=== PATIENT | female | born 1970 | race Caucasian/White ===

== ENCOUNTER 2020-08-07 00:29 | Outpatient (CLI) | payer OTHER, SELFPAY ==
[2020-08-07 19:00] LABS: SARS-CoV-2 RNA PCR Negative
== END 2020-08-07 00:30 | disposition home or self-care (01) ==
LOC: ANHCOVIDDT 00:29
PROVIDERS: PCP Physician Assistant; Visit Provider Internal Medicine Gastroenterology
DX: Z01.812 Encounter for preprocedural laboratory examination (principal); Z20.828 Contact with and (suspected) exposure to other viral communicable diseases
CPT/HCPCS: 87635; C9803; U0003

== ENCOUNTER 2020-08-09 00:07 | Day surgery (SDC) | payer OTHER, SELFPAY ==
[2020-08-02 10:53] VITALS: BMI 30.9
[2020-08-09 08:28] VITALS: BP 116/90; PULSE 96; RESP 18; TEMP 35.5; O2SAT 96; BMI 31.2
--- NOTE | 2020-08-09 08:30 | P.HP_ITS ---
History of Present Illness History of Present Illness Consent: Risks, benefits, and alternatives have been discussed and questions answered. Patient agrees to proceed with procedure. Chief complaint: Neoplasm Screening Narrative: Sissy Arteaga is a 49 year old W female referred for her 1st screening colonoscopy. Patient is asymptomatic and there is no known family history of colon polyps or colon cancer. [facility] Surgical History Surgical History (Updated 08/09/20 @ 08:31 by Modesto Pruitt MD) Status post Social History Social History Smoking status: Never smoker Alcohol intake: current Drinks per week: 0 Substance use: never Substance use type: does not use Living arrangements: with family Spiritual care concerns: No Meds Home Medications and Allergies Home Medications Medication Instructions Recorded Confirmed Type No Home Medications 08/02/20 08/02/20 History Allergies Allergy/AdvReac Type Severity Reaction Status Date / Time Iodinated Contrast Media Allergy Severe Swelling Verified 08/09/20 08:27 of Lip/Tongue/Throat metronidazole Allergy Severe HIVES Verified 08/09/20 08:27 oxycodone AdvReac Mild SERVERE N/V Verified 08/09/20 08:27 Contrast Media Allergy Severe THROAT Uncoded 08/09/20 08:27 SWELLING/ DIFFICULTY BREATHING Exam Const: Orientation/consciousness: patient oriented x3 Resp: Auscultation: clear to auscultation bilaterally Cardio: Rate: regular rate Rhythm: regular rhythm Heart sounds: no murmurs GI: GI Palp: Yes Soft to palpation, No Tenderness to palpation present (GI), Y es No hepatosplenomegaly present and No Palpable mass present Auscultation: normal bowel sounds Neuro: General: patient oriented x3 and no focal motor deficits Extrem: General: no pedal edema Assessment and Plan Additional Plan screening colonoscopy in average risk patient
[2020-08-09] MEDS: LACTATED RINGERS 1,000 ML 150 ML IV CONT (08:39)
--- NOTE | 2020-08-09 08:45 | WPDANESEPPF ---
Anes - Initial Pre Proc Eval Procedure: Operation Date: 08/09/20 09:00 Proposed Procedures p Screening Colonoscopy - Modesto Pruitt MD Date/Time: 08/09/20 08:45 Surgeon: Modesto Pruitt MD Pre Op Diagnosis: Neoplasm Screening Patient Data Age: 49 Gender: F Height: 5 ft 6 in Weight: 87.8 kg Last Vital Signs Temp 35.5 C L 08/09/20 08:28 Pulse 96 08/09/20 08:28 Resp 18 08/09/20 08:28 BP 116/90 08/09/20 08:28 Pulse Ox 96 08/09/20 08:28 Allergies Allergy/AdvReac Type Severity Reaction Status Date / Time Iodinated Contrast Media Allergy Severe Swelling Verified 08/09/20 08:27 of Lip/Tongue/Throat metronidazole Allergy Severe HIVES Verified 08/09/20 08:27 oxycodone AdvReac Mild SERVERE N/V Verified 08/09/20 08:27 Contrast Media Allergy Severe THROAT Uncoded 08/09/20 08:27 SWELLING/ DIFFICULTY BREATHING Home Medications Medication Instructions Recorded Confirmed Type No Home Medications 08/02/20 08/02/20 History Patient hx anesthesia problems: none Family hx anesthesia problems: none [facility] Past Medical History Medical History (Updated 08/09/20 @ 08:45 by Antony Cohen MD) Obesity Surgical History Surgical History (Updated 08/09/20 @ 08:45 by Antony Cohen MD) H/O abdominoplasty Status post Social History Social History Smoking status: Never smoker Alcohol intake: current Drinks per week: 0 Substance use: never Substance use type: does not use Living arrangements: with family Spiritual care concerns: No Anes - Eval Final PreProcedure Day of Procedure 08/09/20 08:45 Patient weight: obese Heart: regular rate and rhythm Lungs: clear to auscultation Airway: Mallampati scale class II Neurological: alert and oriented Last oral intake: 2 hours (12 oz water at 730) ASA classification: II Emergent: no Anesthetic plan: delay (until 930 ) Anesthesia type and monitoring: general GIVS and standard monitoring Informed Consent: The patient's anesthetic plan and its attendant risks and benefits were discussed with the patient/family/POA. Questions were solicited and answers provided to the satisfaction of the patient/family/POA.
[2020-08-09] MEDS: SIMETHICONE ORAL SUSPENSION 20 MG/0.3 ML 30 ML BOTTLE 0.6 ML IRRIGATION (10:41)
[2020-08-09 10:47] VITALS: BP 120/81; PULSE 81; RESP 20; O2SAT 97
[2020-08-09 10:57] VITALS: BP 120/81; PULSE 81; RESP 20; O2SAT 97
[2020-08-09 11:07] VITALS: BP 128/88; PULSE 73; RESP 15; O2SAT 100
== END 2020-08-09 11:17 | disposition home or self-care (01) ==
PROVIDERS: PCP Physician Assistant; Visit Provider Internal Medicine Gastroenterology
PROC: 0DJD8ZZ Inspection of Lower Intestinal Tract, Via Natural or Artificial Opening Endoscopic (ICD-10-PCS; CPT 45378; principal; 2020-08-09 09:00)
DX: Z12.11 Encounter for screening for malignant neoplasm of colon (principal); K64.4 Residual hemorrhoidal skin tags; E66.9 Obesity, unspecified; Z68.31 Body mass index [BMI] 31.0-31.9, adult
CPT/HCPCS: 45378; J2704; J7120

== ENCOUNTER 2020-08-24 12:53 | Emergency (ER) | payer OTHER, SELFPAY ==
--- NOTE | ~2020-08-24 | XR_ITS ---
EXAMINATION: XR finger 4th LT min 2V DATE: 08/24/2020 13:29 INDICATION: Smashing injury to the fourth digit with laceration at the proximal interphalangeal joint . TECHNIQUE: Dorsal palmar, lateral and 2 oblique views of the left fourth digit were obtained COMPARISON: None FINDINGS: There is a metal ring which was unable to be removed which obscures the central portion of the diaphy sis of the fourth proximal phalanx. Bone alignment is normal. No fracture. Mild polyarticular osteoar thritis at the interphalangeal joints. Diffuse osteopenia. Soft tissue swelling dorsal to the fourth proximal interphalangeal joint. No radiopaque foreign bodies. IMPRESSION: 1. No acute osseous abnormality. Of note a portion of the central diaphysis of the fourth proximal ph alanx is obscured on all images due to the presence of a ring which was unable to be removed. Reviewed, dictated and finalized at location B. IMPRESSION: 1. No acute osseous abnormality. Of note a portion of the central diaphysis of the fourth proximal phalanx is obscured on all images due to the presence of a ring which was unable to be removed.
[2020-08-24 13:09] VITALS: BP 150/86; PULSE 73; RESP 18; TEMP 36.9; O2SAT 99
--- NOTE | 2020-08-24 13:19 | ED.UPPEXIN ---
HPI - Extremity Injury (Upper) General Chief Complaint: Extremity Injury, Upper Stated Complaint: injury left 4th finger Time Seen by Provider: 08/24/20 13:19 Source: patient Mode of arrival: ambulatory Limitations: no limitations History of Present Illness HPI narrative: Sissy Arteaga is a 49 yo female with no PMH who comes with laceration of left ring finger at proximal joint on a laundry basket 1 hour ago, mild swelling, no bleeding, complaining of pain Related Data Home Medications Medication Instructions Recorded Confirmed No Home Medications 08/02/20 08/02/20 Allergies Allergy/AdvReac Type Severity Reaction Status Date / Time Iodinated Contrast Media Allergy Severe Swelling Verified 08/24/20 13:15 of Lip/Tongue/Throat metronidazole Allergy Severe HIVES Verified 08/09/20 08:27 oxycodone AdvReac Mild SERVERE N/V Verified 08/09/20 08:27 Contrast Media Allergy Severe THROAT Uncoded 08/09/20 08:27 SWELLING/ DIFFICULTY BREATHING Review of Systems Review of Systems: Narrative: CONSTITUTIONAL: Denies fever, chills, sweats. EYES: Denies visual changes, redness, discharge. ENT: Denies rhinorrhea, congestion, sore throat, otalgia. CARDIOVASCULAR: Denies chest pain, palpitations, edema. RESPIRATORY: Denies dyspnea, wheezing, cough GASTROINTESTINAL: Denies abdominal pain, nausea, vomiting, diarrhea. GENITOURINARY: Denies dysuria, hematuria, abnormal discharge SKIN: Denies rash or itching. Small 1 cm laceration of the third ring finger on left NEUROLOGIC: Denies numbness, or focal weakness. PSYCHIATRIC: Denies anxiety or depression. [facility] Past Medical History Medical History Obesity Surgical History Surgical History H/O abdominoplasty Status post Family History Family History Other Diabetes mellitus Heart disease Hypertension Social History Social History Smoking status: Never smoker Alcohol intake: current Drinks per week: 0 Substance use: never Substance use type: does not use Gender identity (if verbalized by the patient): Female Spiritual care concerns: No Comments At time of signature, I agree with nursing past medical, surgical, social and family history. There is no relevant family history pertinent to the presenting complaint. Exam Narrative: Exam Narrative: GENERAL: This is a well-nourished, well-developed patient, in mild distress. HEAD: normocephalic, atraumatic. EYES: PERRL. Sclera clear/white. Vision is grossly intact. EARS: External ears normal, auditory canals clear and without drainage, TMs normal without perforation. Hearing grossly intact. NOSE: External nose normal without nasal discharge, nares without redness, no rhinorrhea. THROAT: Mucous membranes moist, posterior pharynx NECK: Neck supple, non-tender CARDIOVASCULAR: Regular rate and rhythm without murmurs, gallops, or rubs. RESPIRATORY: Clear to auscultation. Breath sounds equal bilaterally. No wheezes, rales, or rhonchi. GASTROINTESTINAL: Abdomen soft, non-tender, SKIN: warm, intact with no suspicious lesions or rash, good texture and turgor. 1 cm laceration with mild swelling to L ring finger with controlled bleeding. Wedding ring i slarge and thick and in way of repair NEURO: awake, alert, and oriented to person, place and time. There were no obvious focal neurologic abnormalities. Steady gait EXTREMITIES: Normal range of motion. BACK: Nontender without deformity Course Course Emergency Course: Scented to express care with small lack to left ring finger proximal joint Ring removed using dental floss method and hand cleaned and used Dermabond and Steri-Strips- placed on splint Directions given for care Vital Signs Vital signs: Vital Signs Tempera
[2020-08-24] MEDS: TETANUS,DIPHTHERIA,AC PERTUSSIS ADULT (0.5 ML) BOOSTRIX IM (13:59)
== END 2020-08-24 14:20 | disposition home or self-care (01) ==
PROVIDERS: Emergency Provider Nurse Practitioner; PCP Physician Assistant
DX: S61.215A Laceration without foreign body of left ring finger without damage to nail, initial encounter (principal); X58.XXXA Exposure to other specified factors, initial encounter; Z23 Encounter for immunization
CPT/HCPCS: 12001; 73140; 90471; 90715; 99213; G0463

== ENCOUNTER → 2021-09-10 13:14 | Outpatient (CLI) | payer OTHER, SELFPAY ==
--- NOTE | ~2021-09-10 | MM_ITS ---
EXAMINATION: MM screening [facility] BI w madie HISTORY: Screening mammogram TECHNIQUE: Craniocaudal and mediolateral oblique 3-D tomosynthesis images were obtained and synthetic 2-D images were generated. CAD analysis was submitted and interpreted. COMPARISON: 04/07/2019, 09/17/2016 BREAST PARENCHYMAL COMPOSITION: There are scattered areas of fibroglandular density. FINDINGS: There is no evidence of suspicious mass, calcification, or architectural distortion to sugg est malignancy in either breast. There has been no suspicious interval change. IMPRESSION: 1. No mammographic evidence of malignancy. 2. Recommend routine screening mammography in one year. BI-RADS Category 1: Negative Reviewed, dictated and finalized at location A. L BILLER
== END ==
PROVIDERS: PCP Physician Assistant; Visit Provider Obstetrics & Gynecology
DX: Z12.31 Encounter for screening mammogram for malignant neoplasm of breast (principal)
CPT/HCPCS: 77063; 77067

== ENCOUNTER 2022-01-30 10:57 | Emergency (ER) | payer OTHER, SELFPAY ==
--- NOTE | ~2022-01-30 | CT_ITS ---
EXAMINATION: CT abdomen pelvis wo con EXAM DATE: 01/30/2022 11:17 INDICATION: RLQ pain, contrast allergy . TECHNIQUE: Spiral CT of the abdomen and pelvis was performed without contrast. Axial, coronal and s agittal images of the abdomen and pelvis were reviewed. The dose-length product (DLP) for this exami nation was 683.80 mGy-cm. The exposure was tailored according to patient size (auto mA exposure cont rol), and iterative reconstruction (ASIR) was used as additional dose reduction technique. Comparison is made to prior examination from 06/11/2017. FINDINGS: There is hepatic steatosis without suspicious focal lesion identified. Spleen, adrenal glan ds, pancreas are unremarkable. Gallbladder is unremarkable. No biliary obstruction. There is no ne phrolithiasis or hydronephrosis. The uterus is not identified and has likely been surgically resect ed. The bladder is collapsed at time of imaging limiting evaluation. There is no retroperitoneal or pelvic lymphadenopathy. The appendix is normal. The stomach and small bowel are unremarkable. There is expected amount of c olonic stool. No free intraperitoneal gas. The heart is normal in size. There are no pericardial or pleural effusions. The lung bases are unremarkable. The bones are unremarkable. IMPRESSION: 1. No acute intra-abdominal findings. Normal appendix. 2. Hepatic steatosis. Reviewed, dictated and finalized at location A.
--- NOTE | 2022-01-30 11:06 | ED.ABDPAIN ---
HPI - Abdominal Pain General Chief Complaint: Abdominal Pain Stated Complaint: abd pain Time Seen by Provider: 01/30/22 11:00 Source: patient History of Present Illness HPI narrative: Patient presents with right lower quadrant abdominal pain. Reports symptoms started last night and were intermittent today they are more consistent with intermittent spikes. Since the pain was increasing she came to the ER for further evaluation. Her pain is achy, constant, no clear aggravating or relieving factors, does not radiate. She denies any nausea or vomiting she denies any diarrhea she denies any vaginal bleeding or urinary symptoms. Reports a history of total hysterectomy but denies any prior abdominal surgeries. She denies any fevers or sick contacts Related Data Home Medications Medication Instructions Recorded Confirmed No Home Medications 08/02/20 08/02/20 Allergies Allergy/AdvReac Type Severity Reaction Status Date / Time Iodinated Contrast Media Allergy Severe Swelling Verified 01/30/22 11:06 of Lip/Tongue/Throat metronidazole Allergy Severe HIVES Verified 01/30/22 11:06 oxycodone AdvReac Mild SERVERE N/V Verified 01/30/22 11:06 Contrast Media Allergy Severe THROAT Uncoded 08/09/20 08:27 SWELLING/ DIFFICULTY BREATHING Review of Systems Review of Systems: CONSTITUTIONAL: Denies fever, chills, or sweats. EYES: Denies visual changes, redness, or discharge. ENT: Denies rhinorrhea, congestion, sore throat, or otalgia. CARDIOVASCULAR: Denies chest pain, palpitations, or edema. RESPIRATORY: Denies cough or dyspnea. GASTROINTESTINAL: Denies nausea, vomiting, or diarrhea. GENITOURINARY: Denies dysuria or hematuria. SKIN: Denies rash or itching. MUSCULOSKELETAL: Denies back pain, joint pain, or myalgia. NEUROLOGIC: Denies headache, numbness, dizziness, or weakness. PSYCHIATRIC: Denies anxiety or depression. All systems reviewed & are unremarkable except as noted in HPI and below PMFSH Past Medical History Medical History Obesity Surgical History Surgical History H/O abdominoplasty Status post Family History Family History Other Diabetes mellitus Heart disease Hypertension Social History Social History Smoking status: Never smoker Alcohol intake: current Drinks per week: 0 Substance use: never Substance use type: does not use Gender identity (if verbalized by the patient): Female Spiritual care concerns: No Exam Narrative: GENERAL: Well-appearing, well-nourished, and in no acute distress. HEAD: Normocephalic, atraumatic. EYES: PERRLA and EOMI. ENT: Nares clear, no rhinorrhea or epistaxis. Mucous membranes moist. NECK: Supple. No masses. No JVD ABDOMEN: Moderate right lower quadrant pain with rebound and guarding soft, nondistended. EXTREMITIES: Normal range of motion. No edema. SKIN: Warm, dry, no rash. NEURO: No focal deficits. Alert and oriented x3. PSYCH: Normal mood and affect. Course Reevaluation(s) Reevaluation #1: Patient notes significant changes in her symptoms she did decline pain medication while in the ER. Labs and imaging returned UA with hematuria of unclear etiology remainder work-up was clinically unremarkable. Discussed inpatient versus outpatient monitoring. Patient defers outpatient monitoring of her symptoms given her reassuring work-up this is a safe plan. Patient encouraged to follow-up with her primary care provider. Date: 01/30/22 Time: 12:13 Vital Signs Vital signs: Vital Signs Temperature 36.4 C 01/30/22 11:12 Pulse Rate 92 01/30/22 11:12 Respiratory Rate 16 01/30/22 11:12 Blood Pressure 138/96 H 01/30/22 11:12 Pulse Oximetry 99 01/30/22 11:12 Temperature 36.4 C 01/30/22 11:12 Pul
[2022-01-30 11:12] VITALS: BP 138/96; PULSE 92; RESP 16; TEMP 36.4; O2SAT 99
[2022-01-30] MEDS: SODIUM CHLORIDE 0.9% IV 1,000 ML 999 ML IV CONT (11:27)
[2022-01-30 11:40] LABS: Basophils Absolute Auto 0.1 K/mm3 (0.0-0.1); Basophils Percent Auto 0.8 % (0.2-1.2); Eosinophils Percent Auto 0.3 % (0-4.4); Hematocrit 42.7 % (37.0-47.0); Hemoglobin 13.8 g/dL (12.0-15.0); Immature Granulocyte Absolute 0.03 K/mm3 (0.00-0.031); Immature Granulocyte Percent A 0.4 % (0-0.5); Lymphocytes Absolute Auto 2.85 K/mm3 (0.9-3.2); Lymphocytes Percent Auto 35.9 % (18.3-44.2); Mean Corpuscular HGB Conc 32.3 g/dl (32-36); Mean Corpuscular Hemoglobin 28.2 pg (26-34); Mean Corpuscular Volume 87.1 fl (80-100); Monocytes Absolute Auto 0.6 K/mm3 (0.1-0.6); Monocytes Percent Auto 7.8 % (2.6-8.5); Neutrophils Absolute Auto 4.4 K/mm3 (1.3-6.7); Neutrophils Percent Auto 54.8 % (45.5-73.1); Platelet Count Result 257 k/mm3 (150-375); Red Cell Distribution Width 14.6 % (11.5-14.5); White Blood Count 7.9 K/mm3 (4.5-10.0)
[2022-01-30 11:44] LABS: Add Urine Microscopic? YES; Appearance Urine Cloudy (Clear); Bacteria Urine Trace /hpf; Bilirubin Urine Negative (Negative); Blood Urine Negative (Negative); Color Urine Yellow (Yellow); Glucose Urine UA Negative (Negative); Ketones Urine Negative (Negative); Leukocyte Esterase Ur Trace LEU/UL (Negative); Mucus Urine Rare /lpf; Nitrate Urine Negative (Negative); Protein Urine Negative (Negative); RBC Urine 21-50 /hpf (0-2); Specific Grav Ur 1.024 (1.001-1.035); Squamous Epithelial Cell Urine Few /hpf (Few); Urobilinogen Urine Negative mg/dL (<2.0); WBC Urine 0-3 /hpf
[2022-01-30 11:46] LABS: Alanine Aminotransferase 32 U/L (4-35); Albumin Level 4.7 g/dL (3.5-5.1); Alkaline Phosphatase 105 U/L (38-126); Anion Gap 7 mmol/L (8-16); Aspartate Amino Transferase 35 U/L (14-36); Bilirubin,Total 0.6 mg/dL (0.2-1.3); Blood Urea Nitrogen 19 mg/dL (7-17); Calcium 9.1 mg/dL (8.4-10.2); Carbon Dioxide 23 mmol/L (22-30); Chloride 106 mmol/L (98-107); Estimated CRCL calculation 78 ml/min; Estimated Glomerular Filt Rate > 60; Glucose 115 mg/dL (65-110); Lipase 99 U/L (23-300); Potassium 4.1 mmol/L (3.4-5.0); Sodium 136 mmol/L (137-145)
[2022-01-30 12:40] VITALS: BP 139/86; PULSE 80; RESP 17; O2SAT 99
--- NOTE | 2022-02-06 07:41 | PC.NURSE ---
LATE ENTRY This note is being entered to document information to the patient's record. The following information was omitted on [], by [alex cabral]. ns start 12:28 end 1333
== END 2022-01-30 12:41 | disposition home or self-care (01) ==
PROVIDERS: Emergency Provider Emergency Medicine; PCP Physician Assistant
DX: K76.0 Fatty (change of) liver, not elsewhere classified (principal); R31.9 Hematuria, unspecified; E66.9 Obesity, unspecified; Z68.29 Body mass index [BMI] 29.0-29.9, adult; R10.31 Right lower quadrant pain
CPT/HCPCS: 36415; 74176; 80053; 81001; 83690; 85025; 96360; 99284; J7030

== ENCOUNTER 2022-10-13 05:59 | Day surgery (SDC) | payer OTHER, SELFPAY ==
[2022-10-03 11:13] VITALS: BMI 31.3
[2022-10-13 06:15] VITALS: BP 151/102; PULSE 80; RESP 20; TEMP 37.1; O2SAT 97
[2022-10-13 06:53] VITALS: BMI 32.9
[2022-10-13] MEDS: LACTATED RINGERS 1,000 ML 150 ML IV CONT (06:56)
--- NOTE | 2022-10-13 06:57 | P.PNAN_ITS ---
Anes - Initial Pre Proc Eval Procedure: Operation Date: 10/13/22 07:30 Proposed Procedures p Esophagogastroduodenoscopy - Tone Berrios MD Date/Time: 10/13/22 06:57 Surgeon: Tone Berrios MD Pre Op Diagnosis: Gerd Patient Data Age: 51 Gender: F Height: 1.68 m Weight: 92.5 kg Last Vital Signs Temp 37.1 C 10/13/22 06:15 Pulse 80 10/13/22 06:15 Resp 20 10/13/22 06:15 BP 151/102 H 10/13/22 06:15 Pulse Ox 97 10/13/22 06:15 O2 Del Method Room Air 10/13/22 06:15 Allergies Allergy/AdvReac Type Severity Reaction Status Date / Time Iodinated Contrast Media Allergy Severe Swelling Verified 10/13/22 06:51 of Lip/Tongue/Throat metronidazole Allergy Severe HIVES Verified 10/13/22 06:51 oxycodone AdvReac Mild SERVERE N/V Verified 10/13/22 06:51 Contrast Media Allergy Severe THROAT Uncoded 10/13/22 06:51 SWELLING/ DIFFICULTY BREATHING Home Medications Medication Instructions Recorded Confirmed Type alprazolam 0.25 mg tablet 0.25 mg PO PRN PRN Anxiety 10/03/22 10/13/22 History pantoprazole 40 mg tablet,delayed 40 mg PO DAILY 10/03/22 10/13/22 History release (Protonix) Patient hx anesthesia problems: none Family hx anesthesia problems: none Results Review: All pre-operative results and documents have been reviewed as part of the pre- operative evaluation. [facility] Past Medical History Medical History (Updated 10/13/22 @ 06:57 by Antony Cohen MD) GERD (gastroesophageal reflux disease) Obesity Surgical History Surgical History H/O abdominoplasty Status post Family History Family History Other Diabetes mellitus Heart disease Hypertension Social History Social History Smoking status: Never smoker Alcohol intake: current Drinks per week: 0 Substance use: never Substance use type: does not use Living arrangements: with family Gender identity (if verbalized by the patient): Female Spiritual care concerns: No Anes - Eval Final PreProcedure Day of Procedure 10/13/22 06:57 Patient weight: obese Heart: regular rate and rhythm Lungs: clear to auscultation Airway: Mallampati scale class II Neurological: alert and oriented Last oral intake: >/= 8 hours ASA classification: II Emergent: no Anesthetic plan: proceed Anesthesia type and monitoring: general GIVS and standard monitoring Results Review: All pre-operative results and documents have been reviewed as part of the pre- operative evaluation. Informed Consent: The patient's anesthetic plan and its attendant risks and benefits were discussed with the patient/family/POA. Questions were solicited and answers provided to the satisfaction of the patient/family/POA.
--- NOTE | 2022-10-13 07:28 | PM.HPGS ---
History of Present Illness History of Present Illness Consent: Risks, benefits, and alternatives have been discussed and questions answered. Patient agrees to proceed with procedure. Chief complaint: Gerd Narrative: Sissy Arteaga is a 51 year old female Presents for EGD. Patient has had a history of acid regurgitation with a bitter taste in her throat. She also has had substernal chest pain. Over the last 2 months she has been treated with pantoprazole 40mg p.o. daily with a good response to therapy. Patient denies any dysphagia. She has had no weight loss. Most symptoms have improved with this medication. Patient has had similar symptoms in the past that improved with Zantac however ultimately she discontinue this medication. Review of Systems Review of Systems: Review of systems noncontributory. [facility] Past Medical History Medical History (Updated 10/13/22 @ 07:29 by Tone Berrios MD) GERD (gastroesophageal reflux disease) Obesity Surgical History Surgical History H/O abdominoplasty Status post Family History Family History Other Diabetes mellitus Heart disease Hypertension Social History Social History Smoking status: Never smoker Alcohol intake: current Drinks per week: 0 Substance use: never Substance use type: does not use Living arrangements: with family Gender identity (if verbalized by the patient): Female Spiritual care concerns: No Meds Home Medications and Allergies Home Medications Medication Instructions Recorded Confirmed Type alprazolam 0.25 mg tablet 0.25 mg PO PRN PRN Anxiety 10/03/22 10/13/22 History pantoprazole 40 mg tablet,delayed 40 mg PO DAILY 10/03/22 10/13/22 History release (Protonix) Allergies Allergy/AdvReac Type Severity Reaction Status Date / Time Iodinated Contrast Media Allergy Severe Swelling Verified 10/13/22 06:51 of Lip/Tongue/Throat metronidazole Allergy Severe HIVES Verified 10/13/22 06:51 oxycodone AdvReac Mild SERVERE N/V Verified 10/13/22 06:51 Contrast Media Allergy Severe THROAT Uncoded 10/13/22 06:51 SWELLING/ DIFFICULTY BREATHING Vital Signs Vital Signs - 24 hr 10/13/22 06:15 Temperature 98.8 F Pulse Rate 80 Respiratory Rate 20 Blood Pressure 151/102 H Pulse Oximetry 97 Oxygen Delivery Room Air Exam Narrative: Physical exam reveals patient to be alert. Vital signs stable. HEENT exam is unremarkable. Patient is anicteric. Lungs are clear to auscultation and percussion. Heart is without murmur or extra sounds. Abdomen bowel sounds are present soft nontender with no organomegaly. Digital external rectal exam is normal. Assessment and Plan Assessment and plan (1) GERD (gastroesophageal reflux disease): Code(s): K21.9 - Gastro-esophageal reflux disease without esophagitis Status: Acute Assessment and Plan: Patient presents for EGD. She has a history of recurrent acid reflux disease. Currently improved on pantoprazole 40mg p.o. daily. EGD will be performed. Anticipate long-term therapy. She may BD able to try an H2 hector as an alternative pending on results of EGD. Elevating head of bed at night. No late snacks are all important.
[2022-10-13 07:46] VITALS: BP 131/82; PULSE 70; RESP 16; O2SAT 99
--- NOTE | 2022-10-13 07:52 | WPDANESPN ---
Anes - Prog Note Post-Op Date/Time: 10/13/22 07:52 Cardiovascular status: normal Respiratory status: normal Airway patency: baseline Mental status: baseline Post-Op hydration status: normal Vital Signs: Last Vital Signs Temp 37.1 C 10/13/22 06:15 Pulse 80 10/13/22 06:15 Resp 20 10/13/22 06:15 BP 151/102 H 10/13/22 06:15 Pulse Ox 97 10/13/22 06:15 O2 Del Method Room Air 10/13/22 06:15 Pain Score (VAS): 0/10 I/O: Intake & Output 10/12/22 10/12/22 10/13/22 15:59 23:59 07:59 Intake Total 200 Balance 200 Patient Feedback: Patient satisfied with anesthetic care.
[2022-10-13 07:56] VITALS: BP 113/81; PULSE 66; RESP 20; O2SAT 98
[2022-10-13 08:06] VITALS: BP 125/83; PULSE 61; RESP 20; O2SAT 97
== END 2022-10-13 08:23 | disposition home or self-care (01) ==
PROVIDERS: PCP Physician Assistant; Visit Provider Internal Medicine Gastroenterology
PROC: 0DJ08ZZ Inspection of Upper Intestinal Tract, Via Natural or Artificial Opening Endoscopic (ICD-10-PCS; CPT 43235; principal; 2022-10-13 07:30)
DX: K21.9 Gastro-esophageal reflux disease without esophagitis (principal)
CPT/HCPCS: 43235

== ENCOUNTER 2022-10-26 21:08 | Emergency (ER) | payer OTHER, SELFPAY ==
[2022-10-26 21:24] VITALS: BP 170/100; PULSE 91; RESP 16; TEMP 36.9; O2SAT 99
--- NOTE | 2022-10-27 02:00 | PC.NURSE ---
patient called to room with no answer
== END 2022-10-27 02:00 | disposition left against medical advice (07) ==
PROVIDERS: PCP Physician Assistant
DX: R10.9 Unspecified abdominal pain (principal)
CPT/HCPCS: 99199

== ENCOUNTER → 2022-11-21 15:29 | Outpatient (CLI) | payer OTHER, SELFPAY ==
--- NOTE | ~2022-11-21 | MM_ITS ---
EXAMINATION: MM screening [facility] BI w madie HISTORY: Screening TECHNIQUE: Craniocaudal and mediolateral oblique 3-D tomosynthesis images were obtained and synthetic 2-D images were generated. CAD analysis was submitted and interpreted. COMPARISON: Comparison to multiple prior studies sequentially, with oldest reviewed study dated 08/27. BREAST PARENCHYMAL COMPOSITION: There are scattered areas of fibroglandular density. FINDINGS: There is no evidence of suspicious mass, calcification, or architectural distortion to sugg est malignancy in either breast. There has been no suspicious interval change. IMPRESSION: 1. No mammographic evidence of malignancy. 2. Recommend routine screening mammography in one year. BI-RADS Category 1: Negative Reviewed, dictated and finalized at location A. S SORTER
== END ==
PROVIDERS: PCP Obstetrics & Gynecology; Visit Provider Obstetrics & Gynecology
DX: Z12.31 Encounter for screening mammogram for malignant neoplasm of breast (principal)
CPT/HCPCS: 77063; 77067

== ENCOUNTER 2023-02-23 15:04 | Emergency (ER) | payer OTHER, SELFPAY ==
[2023-02-23 15:14] VITALS: BP 143/84; PULSE 106; RESP 16; TEMP 38.6; O2SAT 98
--- NOTE | 2023-02-23 15:20 | ED.URI ---
HPI - URI/Sore Throat General Chief Complaint: Upper Respiratory Infection Stated Complaint: Sore Throat Time Seen by Provider: 02/23/23 15:18 Source: patient Mode of arrival: ambulatory Limitations: no limitations History of Present Illness HPI Narrative: Ms. Arteaga is a 52-year-old female patient presenting to the clinic today with complaints of sore throat, headache, body aches, chills, coughing and left ear pain since last night. Temperature of 38.6? C in the clinic today. Thinks she may have strep throat. MD elicited complaint: sore throat and nasal congestion Related Data Home Medications Medication Instructions Recorded Confirmed alprazolam 0.25 mg tablet 0.25 mg PO PRN PRN Anxiety 10/03/22 02/23/23 terbinafine HCl 250 mg tablet 250 mg PO DAILY 02/23/23 02/23/23 Allergies Allergy/AdvReac Type Severity Reaction Status Date / Time Iodinated Contrast Media Allergy Severe Swelling Verified 02/23/23 15:18 of Lip/Tongue/Throat metronidazole Allergy Severe HIVES Verified 02/23/23 15:18 oxycodone AdvReac Mild SERVERE N/V Verified 02/23/23 15:18 Review of Systems Review of Systems: Pertinent positives per HPI. Patient denies any rash, visual changes, dizziness, shortness of breath, chest pain, palpitations, nausea, vomiting, diarrhea, constipation, abdominal pain, or any urinary issues. [facility] Past Medical History Medical History GERD (gastroesophageal reflux disease) Obesity Surgical History Surgical History H/O abdominoplasty Status post Family History Family History Other Diabetes mellitus Heart disease Hypertension Social History Social History Smoking status: Never smoker Alcohol intake: current Drinks per week: 0 Substance use: never Substance use type: does not use Living arrangements: with family Gender identity (if verbalized by the patient): Female Spiritual care concerns: No Comments At the time of my signature, I reviewed and agree with the nursing past medical, surgical, social, and family history. There is no relevant family history pertinent to the patient complaint. Exam Narrative: General: Well-developed, well nourished, in no apparent distress Head: Normocephalic, atraumatic Eyes: Pupils equally round and reactive to light bilaterally, EOM intact, sclera and conjunctive clear, no discharge, lids normal Ears: TMs intact and clear, ear canals clear, no drainage, grossly hearing normal. Nose: Nares patent, no discharge, no inflammation, no sinus tenderness. Mouth: Oral pharynx red with bilateral tonsillar enlargement with white exudate,without lesions or masses, good dentition, MMM. Neck: Supple, trachea midline, mild enlargement of anterior cervical nodes, no thyroid masses or goiter palpable. Cardio: Regular rate and rhythm, s1 and s2 normal, no murmur appreciated. Resp: Clear to auscultation bilaterally, no rhonchi, rales, wheezing or rubs Course Course Emergency Course: Portions of this record may have been created with voice recognition software. Level of Care: Express Care Visit Vital Signs Vital signs: Vital Signs Temperature 38.6 C H 02/23/23 15:14 Pulse Rate 106 H 02/23/23 15:14 Respiratory Rate 16 02/23/23 15:14 Blood Pressure 143/84 H 02/23/23 15:14 Pulse Oximetry 98 02/23/23 15:14 Oxygen Delivery Room Air 02/23/23 15:14 Temperature 38.6 C H 02/23/23 15:14 Pulse Rate 106 H 02/23/23 15:14 Respiratory Rate 16 02/23/23 15:14 Blood Pressure 143/84 H 02/23/23 15:14 Pulse Oximetry 98 02/23/23 15:14 Oxygen Delivery Room Air 02/23/23 15:14 Vital signs reviewed MDM - URI/Sore Throat MDM Narrative Medical decision making narrativ
== END 2023-02-23 15:34 | disposition home or self-care (01) ==
PROVIDERS: Emergency Provider Nurse Practitioner Family; PCP Physician Assistant
DX: J02.0 Streptococcal pharyngitis (principal); K21.9 Gastro-esophageal reflux disease without esophagitis; E66.9 Obesity, unspecified; Z68.32 Body mass index [BMI] 32.0-32.9, adult
CPT/HCPCS: 87880; 99213; G0463

== ENCOUNTER → 2023-12-24 14:00 | Outpatient (CLI) | payer OTHER, SELFPAY ==
--- NOTE | ~2023-12-24 | MM_ITS ---
EXAMINATION: MM screening adan BI w madie HISTORY: Screening TECHNIQUE: Craniocaudal and mediolateral oblique 3-D tomosynthesis images were obtained and synthetic 2-D images were generated. CAD analysis was submitted and interpreted. COMPARISON: Comparison to multiple prior studies sequentially, with oldest reviewed study dated 09/25. BREAST PARENCHYMAL COMPOSITION: There are scattered areas of fibroglandular density. FINDINGS: There is no evidence of suspicious mass, calcification, or architectural distortion to sugg est malignancy in either breast. There has been no suspicious interval change. IMPRESSION: 1. No mammographic evidence of malignancy. 2. Recommend routine screening mammography in one year. BI-RADS Category 1: Negative Reviewed, dictated and finalized at location A. [employer]
== END ==
PROVIDERS: PCP Obstetrics & Gynecology; Visit Provider Obstetrics & Gynecology
DX: Z12.31 Encounter for screening mammogram for malignant neoplasm of breast (principal)
CPT/HCPCS: 77063; 77067

== ENCOUNTER 2024-03-24 10:58 | Outpatient (CLI) | payer OTHER, SELFPAY ==
--- NOTE | ~2024-03-24 | US_ITS ---
Abdominal Sonogram: Real-time sonographic imaging of the abdomen was performed. Clinical History: Family history of malignancy Findings: The liver appears mildly echogenic with no evidence of mass lesion or bile duct dilatation . Main portal vein demonstrates normal direction of flow. The spleen is normal in size without eviden ce of focal lesion. The gallbladder is well distended, and appears normal with no evidence of gallst one or wall thickening. The common bile duct measures 5 mm. The visualized pancreas, aorta, and IVC are unremarkable. The right kidney measures 10.3 cm in length and the left kidney measures 10.3 cm. There is no hydronephrosis or renal calculus. Impression: Probable diffuse fatty infiltration of the liver. Reviewed, dictated and finalized at location M. Impression: Probable diffuse fatty infiltration of the liver.
== END 2024-03-24 10:59 ==
LOC: MICIMG 10:59
PROVIDERS: PCP Physician Assistant; Visit Provider Physician Assistant
DX: K76.0 Fatty (change of) liver, not elsewhere classified (principal); Z80.0 Family history of malignant neoplasm of digestive organs
CPT/HCPCS: 76700

== ENCOUNTER 2025-03-29 07:33 | Outpatient (CLI) | payer OTHER, SELFPAY ==
--- NOTE | ~2025-03-29 | MM_ITS ---
EXAMINATION: MM screening adan BI w madie HISTORY: Screening mammogram TECHNIQUE: Craniocaudal and mediolateral oblique 3-D tomosynthesis images were obtained and synthetic 2-D images were generated. CAD analysis was submitted and interpreted. COMPARISON: 12/24/2023 through 10/07/2019 BREAST PARENCHYMAL COMPOSITION: The breasts are almost entirely fatty. FINDINGS: There is no evidence of suspicious mass, calcification, or architectural distortion to sug gest malignancy in either breast. There has been no suspicious interval change. IMPRESSION: 1. No mammographic evidence of malignancy. 2. Recommend routine screening mammography in one year. BI-RADS Category 1: Negative Reviewed, dictated and finalized at location B.
--- OUTSIDE RECORDS SUMMARY | 2025-03-29 07:36 | XMS_ITS | Data Portability ---
Author Organization [place] [facility], Main Office Address [address] [place] [address] Care Team Providers Care Paid Intern Name Role Phone VERO MAYO Primary Care Provider VERO MAYO Referring Provider Assessment Encounter Date Assessment Date Assessment LastModified by Organization Details LastModified Time 12/26/2022 12/26/2022 52-year-old female presenting for follow-up status post knee arthroscopy on 12/16. Overall she is doing well. Pain is improving. She is ambulating without difficulty. Incisions are well healed. Minimal effusion. She has good range of motion. Negative Antony's. Ligaments stable. Overall doing well. Activities as tolerated. Follow-up in 2 weeks. Not available 01/16/2023 12:48:36 01/09/2023 01/09/2023 52-year-old female presenting for follow-up status post knee arthroscopy on 12/16/2022. She feels much better. She has 0/10 pain. She is not taking any medications. She is able to walk several miles without difficulty. Overall she is very pleased with her outcome. Incisions healing well. She has a small area of swelling on lateral portal. No tenderness to palpation. Full range of motion, negative Antony's. Doing well 3 weeks after knee arthroscopy and chondroplasty. Follow-up as needed. Not available 01/09/2023 11:29:41 Plan of Treatment Reminders Order Date Submit Date Provider Last Modified By Organization Details Last Modified Time Details Appointments None recorded. Lab CMP, serum or plasma 2022 023 [employer] [facility], [address], [place], [address], 10/19/202 3 06:04:01 CBC w/ auto diff 2022 023 [employer] [facility], [address], [place], [address], 3 06:04:03 TSH + free T4, serum 2022 023 [employer] [facility], [address], [place], [address], 3 06:03:59 vitamin B12 + folate, serum or blood 2022 [employer] [facility], [address], [place], [address], 3 06:04:04 lipid panel, serum 2022 [employer] [facility], [address], [place], [address], 3 06:04:00 HbA1c (hemoglobin A1c), blood 2022 023 [employer] [facility], [address], [place], [address], 3 06:04:02 Referral None recorded. Procedures None recorded. Surgeries None recorded. Imaging XR, cervical spine, 2 or 3 view 2022 023 [email or web address] Not available 4 10:19:14 Medication Orders Wegovy 2.4 mg/0.75 mL subcutaneou s pen injector 2022 023 [employer] [facility][id number], [address] [place], [address], 11:08:15 Patient TargetsNo targets recorded. Patient InstructionsNo instructions recorded. Reason for Referral None Reported. Results Created Date Observation Date Name Description Value Unit Range Abnormal Flag Note LastModifiedBy Organization Detail LastModifiedTime 08/12/2008/13/2023 TSH+F REE T4 TSH 1.86 mIU/L normal Refer ence Range > or = 20 Years 0.40- 4.50 Pregn uche Range s First trime ster 0.26- 2.66 Secon d trime ster 0.55- 2.73 Third trime ster 0.43- 2.91 Not Available [address], [address], 08/13/2023 06:03:59 08/12/2008/13/2023 TSH+F REE T4 T4, free 1.2 NG/dL 0.8-1. 8 normal Not Available [address], [address], 08/13/2023 06:03:59 08/12/2008/13/2023 LIPID PANEL WITH RATIO S cholesterol, total 165 mg/dL <200 normal Not Available [address], [address], 08/13/2023 06:04:00 08/12/2008/13/2023 LIPID PANEL WITH RATIO S HDL cholesterol 42 mg/dL > or = 50 low Not Available [address], [address], 08/13/2023 06:04:00 08/12/2008/13/2023 LIPID PANEL WITH RATIO S triglyceride s 146 mg/dL <150 normal Not Available [address], [address], 08/13/2023 06:04:00 08/12/2008/13/2023 LIPID PANEL WITH RATIO S LDL-choleste rol 98 mg/dL _(berto c) normal Refer ence range : <100 Angelica able range <100 mg/dL for prima ry preve ntion ; <70 mg/dL for patie nts with CHD or diabe tic patie nts with > or = 2 CHD risk facto rs. LDL-C is now calcu lated using the Dunia n-Hop kins anup hull, which is a valid ated novel teresao d constantin sebastian acy than the Fried tabby tracyat ion in the estim ation of LDL-C . Dunia hull SS et al. PRIETO. 2013; 310(1 9): 2061- 2068 (http ://ed ucati on.Qu refugioDi Narvalouss. com/f aq/FA Q164) Not Available [address], [address], 08/13/2023 06:04:00 08/12/2008/13/2023 LIPID PANEL WITH RATIO S chol/HDLC ratio 3.9 (calc ) <5.0 normal Not Available [address], [address], 08/13/2023 06:04:00 08/12/2008/13/2023 LIPID PANEL WITH RATIO S LDL/HDL ratio 2.3 (calc ) Below avera ge Risk: <2.34 [place] ge Risk: 2.35- 4.12 Moder ate Risk: 4.13- 5.56 High Risk: >5.57 Not Available [address], [address], 08/13/2023 06:04:00 08/12/2008/13/2023 LIPID PANEL WITH RATIO S non HDL cholesterol 123 mg/dL _(berto c) <130 normal For patie nts with diabe anabel plus 1 major ASCVD risk facto r, treat ing to a non-H DL-C goal of <100 mg/dL (LDL- C of <70 mg/dL ) is consi linetted a radha becko n. Not Available [address] [address] [place], [address], 08/13/2023 06:04:00 08/12/2008/13/2023 COMPR EHENS JEANETTE METAB OLIC PANEL glucose 93 mg/dL 65-99 normal Fasti ng refer ence inter walker Not Available [address] [address] [place], [address], 08/13/2023 06:04:01 08/12/2008/13/2023 COMPR EHENS JEANETTE METAB OLIC PANEL urea nitrogen (BUN) 14 mg/dL 7-25 normal Not Available [address], [address], 08/13/2023 06:04:01 08/12/2008/13/2023 COMPR EHENS JEANETTE METAB OLIC PANEL creatinine 0.91 mg/dL 0.50-1 .03 normal Not Available [address], [address], 08/13/2023 06:04:01 08/12/2008/13/2023 COMPR EHENS JEANETTE METAB OLIC PANEL eGFR 75 mL/mi n/1.7 3m2 > or = 60 normal Not Available [address] [address] [place], [address], 08/13/2023 06:04:01 08/12/2008/13/2023 COMPR EHENS JEANETTE METAB OLIC PANEL BUN/creatini ne ratio SEE NOTE: (calc ) 6-22 Not Repor cesia: BUN and Creat inine are withi n refer ence range . Not Available [address], [address], 08/13/2023 06:04:01 08/12/2008/13/2023 COMPR EHENS JEANETTE METAB OLIC PANEL sodium 139 mmol/ L 135-14 6 normal Not Available [address], [address], 08/13/2023 06:04:01 08/12/2008/13/2023 COMPR EHENS JEANETTE METAB OLIC PANEL potassium 4.2 mmol/ L 3.5-5. 3 normal Not Available [address], [address], 08/13/2023 06:04:01 08/12/2008/13/2023 COMPR EHENS JEANETTE METAB OLIC PANEL chloride 104 mmol/ L 98-110 normal Not Available [address], [address], 08/13/2023 06:04:01 08/12/2008/13/2023 COMPR EHENS JEANETTE METAB OLIC PANEL carbon dioxide 28 mmol/ L 20-32 normal Not Available [address], [address], 08/13/2023 06:04:01 08/12/2008/13/2023 COMPR EHENS JEANETTE METAB OLIC PANEL calcium 9.4 mg/dL 8.6-10 .4 normal Not Available [address], [address], 08/13/2023 06:04:01 08/12/2008/13/2023 COMPR EHENS JEANETTE METAB OLIC PANEL protein, total 7.3 g/dL 6.1-8. 1 normal Not Available [address], [address], 08/13/2023 06:04:01 08/12/2008/13/2023 COMPR EHENS JEANETTE METAB OLIC PANEL albumin 4.2 g/dL 3.6-5. 1 normal Not Available [address], [address], 08/13/2023 06:04:01 08/12/2008/13/2023 COMPR EHENS JEANETTE METAB OLIC PANEL globulin 3.1 g/dL_ (calc ) 1.9-3. 7 normal Not Available [address], [address], 08/13/2023 06:04:01 08/12/2008/13/2023 COMPR EHENS JEANETTE METAB OLIC PANEL albumin/glob ulin ratio 1.4 (calc ) 1.0-2. 5 normal Not Available [address], [address], 08/13/2023 06:04:01 08/12/2008/13/2023 COMPR EHENS JEANETTE METAB OLIC PANEL bilirubin, total 0.4 mg/dL 0.2-1. 2 normal Not Available [address], [address], 08/13/2023 06:04:01 08/12/2008/13/2023 COMPR EHENS JEANETTE METAB OLIC PANEL alkaline phosphatase 84 U/L 37-153 normal Not Available [address], [address], 08/13/2023 06:04:01 08/12/2008/13/2023 COMPR EHENS JEANETTE METAB OLIC PANEL AST 16 U/L 10-35 normal Not Available [address], [address], 08/13/2023 06:04:01 08/12/2008/13/2023 COMPR EHENS JEANETTE METAB OLIC PANEL ALT 22 U/L 6-29 normal Not Available [address], [address], 08/13/2023 06:04:01 08/12/2008/13/2023 HEMOG LOBIN A1C hemoglobin A1C 5.5 %_of_ total _HGB <5.7 normal For the purpo se of hakan white for the prese nce of diabe anabel: <5.7% Consi stent with the absen ce of diabe anabel 5.7-6 .4% Consi stent with incre ased risk for diabe anabel (pred iabet es) > or =6.5% Consi stent with diabe anabel This assay resul t is consi stent with a decre ased risk of diabe anabel. Elmer macdonald no conse nsus exist pacheco luna use of hemog lobin A1c for diagn osis of diabe anabel in child gaurang. Accor ding to Ameri can Diabe anabel Assoc iatio n (ADA) guide lines , hemog lobin A1c <7.0% repre sents optim al contr ol in non-p regna nt diabe tic patie nts. Diffe rent metri cs may apply to speci fic patie nt popul ation s. Stand ards of Medic al Care in Diabe anabel(A DA). Not Available [address] [address] [place], [address], 08/13/2023 06:04:02 08/12/2008/13/2023 CBC (INCL UDES DIFF/ PLT) white blood cell count 7.3 thous and/u L 3.8-10 .8 normal Not Available [address] [address] [place], [address], 08/13/2023 06:04:03 08/12/2008/13/2023 CBC (INCL UDES DIFF/ PLT) red blood cell count 4.58 mayuri on/uL 3.80-5 .10 normal Not Available [address] [address] [place], [address], 08/13/2023 06:04:03 08/12/2008/13/2023 CBC (INCL UDES DIFF/ PLT) hemoglobin 13.1 g/dL 11.7-1 5.5 normal Not Available [address] [address] [place], [address], 08/13/2023 06:04:03 08/12/2008/13/2023 CBC (INCL UDES DIFF/ PLT) hematocrit 39.7 % 35.0-4 5.0 normal Not Available [facility] [address] [address] [place], [address], 08/13/2023 06:04:03 08/12/2008/13/2023 CBC (INCL UDES DIFF/ PLT) MCV 86.7 fL 80.0-1 00.0 normal Not Available [address], [address], 08/13/2023 06:04:03 08/12/2008/13/2023 CBC (INCL UDES DIFF/ PLT) MCH 28.6 pg 27.0-3 3.0 normal Not Available [address], [address], 08/13/2023 06:04:03 08/12/2008/13/2023 CBC (INCL UDES DIFF/ PLT) MCHC 33.0 g/dL 32.0-3 6.0 normal Not Available [address], [address], 08/13/2023 06:04:03 08/12/2008/13/2023 CBC (INCL UDES DIFF/ PLT) RDW 13.8 % 11.0-1 5.0 normal Not Available [address], [address], 08/13/2023 06:04:03 08/12/2008/13/2023 CBC (INCL UDES DIFF/ PLT) platelet count 228 thous and/u L 140-40 0 normal Not Available [address], [address], 08/13/2023 06:04:03 08/12/2008/13/2023 CBC (INCL UDES DIFF/ PLT) MPV 9.4 fL 7.5-12 .5 normal Not Available [address], [address], 08/13/2023 06:04:03 08/12/2008/13/2023 CBC (INCL UDES DIFF/ PLT) absolute neutrophils 4424 cells /uL 1500-7 800 normal Not Available [address], [address], 08/13/2023 06:04:03 08/12/2008/13/2023 CBC (INCL UDES DIFF/ PLT) absolute lymphocytes 2307 cells /uL 850-39 00 normal Not Available [address], [address], 08/13/2023 06:04:03 08/12/2008/13/2023 CBC (INCL UDES DIFF/ PLT) absolute monocytes 482 cells /uL 200-95 0 normal Not Available [address], [address], 08/13/2023 06:04:03 08/12/2008/13/2023 CBC (INCL UDES DIFF/ PLT) absolute eosinophils 37 cells /uL 15-500 normal Not Available [address], [address], 08/13/2023 06:04:03 08/12/2008/13/2023 CBC (INCL UDES DIFF/ PLT) absolute basophils 51 cells /uL 0-200 normal Not Available [address], [address], 08/13/2023 06:04:03 08/12/2008/13/2023 CBC (INCL UDES DIFF/ PLT) neutrophils 60.6 % normal Not Available [address], [address], 08/13/2023 06:04:03 08/12/2008/13/2023 CBC (INCL UDES DIFF/ PLT) lymphocytes 31.6 % normal Not Available [address], [address], 08/13/2023 06:04:03 08/12/2008/13/2023 CBC (INCL UDES DIFF/ PLT) monocytes 6.6 % normal Not Available [facility] [address] [place], [address], 08/13/2023 06:04:03 08/12/20 23 08/13/2023 CBC (INCL UDES DIFF/ PLT) eosinophils 0.5 % normal Not Available [address], [address], 08/13/2023 06:04:03 08/12/2008/13/2023 CBC (INCL UDES DIFF/ PLT) basophils 0.7 % normal Not Available [facility] [address], [address], 08/13/2023 06:04:03 08/12/2008/13/2023 VITAM IN B12/F OLATE , SERUM PANEL vitamin B12 321 pg/mL 200-11 00 normal Pleas e Note: Altho ugh the refer ence range for vitam in B12 is 200-1 100 pg/mL , it has been repor cesia that betwe en 5 and 10% of patie nts with value s betwe en 200 and 400 pg/mL may exper ience neuro psych iatri c and hemat ologi c abnor malit ies due to occul t B12 defic iency ; less than 1% of patie nts with value s above 400 pg/mL will have sympt oms. Not Available [address], [address], 08/13/2023 06:04:04 08/12/2008/13/2023 VITAM IN B12/F OLATE , SERUM PANEL folate, serum 3.4 NG/mL low Refer ence Range Low: <3.4 Borde rline : 3.4-5 .4 Flavia l: >5.4 Not Available [address], [address], 08/13/2023 06:04:04 10/14/20 22 10/13/2022 upper endos copy proce dure (EGD) (PROC ) No observ ation record ed. [id number] Not Available 12/24/2022 10:52:39 10/16/20 22 10/14/2022 MRI, knee, w/o contr ast No observ ation record ed. [email or web address]. [id number] Not Available 12/24/2022 10:52:39 10/29/19 23 10/29/2022 XR, knee, 3 view No observ ation record ed. [id number] [place] [address], [place], [address], 12/24/2022 10:52:39 Result Notes None recorded. Problems Name Problem SNOMED Code Status Onset Date Resolution Date Notes Provider Name and Address Organization Details Recorded Time Atypical chest pain 382092237 Active 2021 Not Available [facility] 3 10:46:56 Generalized headache 290288187 Active Not Available [facility] 3 10:46:56 Blood glucose outside reference range 314503893 Active Not Available [facility] 3 10:46:56 Generalized anxiety disorder 65784596 Active 2021 Not Available [facility] 3 10:46:56 Gastroesophag eal reflux disease 669642094 Active 2021 JOSELINE [place], [place] [facility] [place] [employer] [facility] 3 09:50:12 Fear of flying 395313116 Active 2021 Not Available [facility] 3 10:46:56 Vitamin D deficiency 18737688 Active Not Available [facility] 3 10:46:56 Hiatal hernia with gastroesophag eal reflux 761458122 Active Not Available [facility] 3 10:46:56 Elevated blood-pressur e reading without diagnosis of hypertension 861805992 Active Not Available [facility] 3 10:46:56 Dizziness 317965327 Active Not Available [facility] 3 10:46:56 Acute urinary tract infection 696625863 Active 2021 Not Available [facility] 3 10:46:56 Streptococcal sore throat 11190754 Active 2022 Not Available [facility] 3 10:46:57 Abnormal weight 30659849 Active 2022 Dana Man RN [facility] [place] [employer] [facility] [employer] [facility] 3 09:57:24 Nausea 419748161 Active 2022 MARY Suarez [address], [address], [place], [address] , [employer] [facility] [employer] [facility] 3 17:16:58 Gastroesophag eal reflux disease without esophagitis 459737750 Active 2022 MARY Suarez [address], [address], [place], [address] , [employer] [facility] [employer] [facility] 3 11:01:56 Cervical radiculopathy 12125532 Active 2022 MARY Suarez [address], [address], [place], [address] , [employer] [facility] [employer] [facility] 3 11:02:45 Acute sinusitis 97232978 Active 2023 MARY Suarez [address], [address], [place], [address] , [employer] [facility] [employer] [facility] 4 15:42:44 Problem Notes None recorded. Procedures Surgical History Date Name Laterality Status Provider Name and Address Organization Details Recorded Time 04/14/20 19 Most Recent Mammogram completed Not Available [facility] 12/24/2022 10:42:54 03/14/20 19 Date of Last Pap Smear completed Not Available [facility] 12/24/2022 10:42:54 completed Not Available [facility] 12/24/2022 10:42:54 completed Not Available [facility] 12/24/2022 10:42:54 other completed Not Available [facility] 12/24/2022 10:42:54 abdominoplasty completed Not Available [facility] 12/24/2022 10:42:54 completed Not Available [facility] 12/24/2022 10:42:54 Hysterectomy completed Not Available [facility] 12/24/2022 10:42:54 Imaging Results None recorded. Procedure Notes None recorded. Medical Equipment None Reported. Allergies Allergen ID Allergen Name Allergen Category Reaction Reaction Severity Criticality Documentation Date Start Date Code Code System Note Provider Name and Address Organization Details Recorded Time 22571 Iodinated contrast media (substanc e) medicatio n Not available Not available Not available 12/24/2022 03040 2003 SNOMED throa t close s Not Available [facility] 10:52:23 Medications Name Sig Start Date Stop Date Status Note LastModified by Organization Details LastModified Time celecoxib 200 mg capsule TAKE 1 CAPSULE BY MOUTH TWICE DAILY FOR 5 DAYS. BEGIN WITH ONE DOSE AT BEDTIME NIGHT BEFORE SURGERY 03/28 completed Not Available Not Available Not Available cyclobenza marcos 10 mg tablet TAKE 1 TABLET BY MOUTH EVERY 8 HOURS NEEDED FOR MUSCLE SPASMS 03/28 completed Not Available Not Available Not Available amoxicilli n 500 mg capsule TAKE 1 CAPSULE BY MOUTH EVERY 12 HOURS FOR 10 DAYS 03/26 completed Not Available Not Available Not Available silver sulfadiazi ne 1 % topical cream APPLY TO AFFECTED AREA(S) TWICE DAILY 03/28 completed Not Available Not Available Not Available azithromyc in 250 mg tablet TAKE 2 TABLETS BY MOUTH TODAY, THEN TAKE 1 TABLET DAILY FOR 4 DAYS DIRECTED active Not Available Not Available No t Available fluconazol e 150 mg tablet TAKE 1 TABLET BY MOUTH ON DAY 1 AND ON DAY 3 OF ANTIBIOTI C 03/25 completed Not Available Not Available Not Available hydrocodon e 5 mg-acetami nophen 325 mg tablet TAKE 1 TABLET BY MOUTH EVERY 4 HOURS NEEDED FOR PAIN 08/11 completed Not Available Not Available Not Available meloxicam 15 mg tablet 06/18 completed Not Available Not Available Not Available ondansetro n HCl 4 mg tablet TAKE 1 TABLET BY MOUTH ONCE FOR 1 DOSE. TAKE ONE TABLET THE NIGHT BEFORE SURGERY 03/28 completed Not Available Not Available Not Available prednisone 20 mg tablet active Not Available Not Available Not Available ciprofloxa lebron 500 mg tablet TAKE 1 TABLET BY MOUTH EVERY 12 HOURS 03/25 completed Not Available Not Available Not Available Tamiflu 75 mg capsule Take 1 capsule every day by oral route. 11/10 completed Not Available Not Available Not Available Zantac 150 mg tablet Take 1 tablet twice a day by oral route as needed. 06/18 completed Not Available Not Available Not Available terbinafin e HCl 250 mg tablet TAKE 1 TABLET BY MOUTH EVERY DAY active Not Available Not Available No t Available alprazolam 0.5 mg tablet TAKE 0.5 TABLETS TWICE A DAY BY ORAL ROUTE NEEDED. active Not Available Not Available No t Available amoxicilli n 875 mg tablet Take 1 tablet every 12 hours by oral route. active Not Available Not Available No t Available alprazolam 0.25 mg tablet TAKE 1 TABLET 3 TIMES A DAY BY ORAL ROUTE NEEDED. active Not Available Not Available No t Available famotidine 20 mg tablet TAKE 1 TABLET BY MOUTH EVERY DAY active Not Available Not Available No t Available Kenalog 10 mg/mL suspension for injection In office injection administe red by the provider 03/25 completed [facility]: 0003-0 494-20 , [id number] 2023 Not Available Not Available Not Available cephalexin 500 mg capsule TAKE 1 CAPSULE BY MOUTH FOUR TIMES A DAY FOR 7 DAYS 03/28 completed Not Available Not Available Not Available pantoprazo le 40 mg tablet,del ayed release TAKE 1 TABLET BY MOUTH EVERY DAY active Not Available Not Available No t Available prednisone 50 mg tablet TAKE 1 TABLET BY MOUTH EVERY DAY FOR 5 DAYS active Not Available Not Available No t Available docusate sodium 100 mg capsule TAKE 1 CAPSULE BY MOUTH TWICE A DAY FOR 10 DAYS 03/28 completed Not Available Not Available Not Available gabapentin 300 mg capsule TAKE 1 CAPSULE TWICE DAILY FOR 7 DAYS. BEGIN WITH 1 DOSE AT BEDTIME THE NIGHT BEFORE SURGERY 03/28 completed Not Available Not Available Not Available Levaquin 500 mg tablet Take 1 tablet every 24 hours by oral route. 03/09 completed Not Available Not Available Not Available cefuroxime axetil 500 mg tablet TAKE 1 TABLET BY MOUTH EVERY 12 HOURS active Not Available Not Available No t Available Vitamin D2 1,250 mcg (50,000 unit) capsule TAKE 1 CAPSULE(S ) EVERY WEEK BY ORAL ROUTE DIRECTED. active Not Available Not Available No t Available Tussionex Pennkineti c ER 10 mg-8 mg/5 mL suspension ,extended release Take 5 mL every 12 hours by oral route as needed. 03/09 completed Not Available Not Available Not Available ondansetro n 4 mg disintegra ting tablet PLACE 1 TABLET BY TRANSLING UAL ROUTE EVERY 6 HOURS NEEDED active Not Available Not Available No t Available fluticason e propionate 50 mcg/actuat ion nasal spray,susp ension [place] 2 sprays every day by intranasa l route as directed. active Not Available Not Available No t Available amoxicilli n 875 mg-potassi um clavulanat e 125 mg tablet Take 1 tablet every 12 hours by oral route for 7 days. 06/15 completed Not Available Not Available Not Available enoxaparin 40 mg/0.4 mL subcutaneo us syringe active Not Available Not Available N ot Available hydrochlor othiazide 12.5 mg tablet TAKE 1 TABLET BY MOUTH EVERY MORNING 08/31 completed Pt hasnt taken it in one month. Not Available Not Available Not Available bimatopros t 0.03 % drops with applicator , eyelash base APPLY A SMALL AMOUNT ON TO BASE OF EYELASHES DAILY 03/28 completed Not Available Not Available Not Available ropivacain e (PF) 5 mg/mL (0.5 %) injection solution Take 20 mg by injection route. 08/10 completed C2423, 2023 Not Available Not Available Not Available Saxenda 3 mg/0.5 mL (18 mg/3 mL) subcutaneo us pen injector INJECT 3MG SUBCUTANE OUSLY DAILY 07/17 completed Not Available Not Available Not Available Fluzone 1550-2451 45 mcg (15 mcg x 3)/0.5 mL intramuscu lar suspension ADM 0.5ML IM UTD active Not Available Not Available No t Available BD Ultra-Fine Micro Pen Needle 32 gauge x 1/4 USE DIRECTED ONE DAILY active Not Available Not Available No t Available Wegovy 2.4 mg/0.75 mL subcutaneo us pen injector Inject 2.4 mg every week by subcutane ous route as directed. active Not Available Not Available No t Available Wegovy 1.7 mg/0.75 mL subcutaneo us pen injector Inject 1.7 mg every week by subcutane ous route as directed. active Not Available Not Available No t Available Wegovy 0.5 mg/0.5 mL subcutaneo us pen injector Inject 0.5 mg every week by subcutane ous route. 04/22 completed Not Available Not Available Not Available Vitals Date Recorded Body mass index (BMI) Body height Body weight Provider Name and Address Organization Details Last Updated DateTime 11/14/2022 30.7 kg/m2 167.64 cm 24573.55 g Not Available Judith elizabeth 12/24/2022 10:46:10 Date Recorded Body height Body mass index (BMI) Body weight Provider Name and Address Organization Details Last Updated DateTime 12/26/2022 167.64 cm 30.7 kg/m2 05569.55 g Arie Patino Nataliya Sc[facility] 12/26/2022 10:13:27 Date Recorded Body height Body mass index (BMI) Body weight Provider Name and Address Organization Details Last Updated DateTime 01/09/2023 167.64 cm 30.7 kg/m2 15583.55 g JOSELINE Contreras [facility] 01/09/2023 10:25:02 Date Recorded Body mass index (BMI) Provider Name and Address Organization Details Last Updated DateTime 03/26/2023 32.4 kg/m2 MARY Suarez [address] [facility], [address] [address], [place], [address], [facility] 04/18/2023 20:09:08 Date Recorded Body height Body weight Body temperature Heart rate Oxygen saturation Oxygen saturation in Arterial blood by Pulse oximetry Systolic blood pressure Diastolic blood pressure Provider Name and Address Organization Details Last Updated DateTime 3 167.64 cm 23213.0 7 g 97.6 [degF] 87 /min 98 % 98 % 118 mm[Hg] 84 mm[Hg] [facility] [place] 10:02:03 Date Recorded Body height Body mass index (BMI) Body weight Body temperature Heart rate Oxygen saturation Oxygen saturation in Arterial blood by Pulse oximetry Systolic blood pressure Diastolic blood pressure Provider Name and Address Organization Details Last Updated DateTime 3 167.64 cm 29.1 kg/m2 86822.6 3 g 97.3 [degF] 85 /min 98 % 98 % 116 mm[Hg] 78 mm[Hg] MORRIS Núñez [facility] 10:28:57 Social History Question Answer Notes LastModified by Organizat ion Details LastModified Time Tobacco Smoking Status Never Smoker Not Available [employer] 12/24/2022 10:42:43 Do You Have An Advance Directive? Yes MIGRATION.[id number] 8191 Information not available 12/24/2022 Do You Wear A Helmet When Biking? No MIGRATION.627490 6218 Information not available 12/24/2022 What Is Your Level Of Caffeine Consumption? Occasional MIGRATION.547873 3454 Information not available 12/24/2022 In The 14 Days Before Symptom Onset, Have You Had Close Contact With A Laboratory-confirm ed COVID-19 While That Case Was Ill? No MIGRATION.963392 9538 Information not available 12/24/2022 In The 14 Days Before Symptom Onset, Have You Had Close Contact With A Person Who Is Under Investigation For COVID-19 While That Person Was Ill? No MIGRATION.958008 1554 Information not available 12/24/2022 What Type Of Diet Are You Following? REGULAR MIGRATION.599322 9818 Information not available 12/24/2022 What Is The Highest Grade Or Level Of School You Have Completed Or The Highest Degree You Have Received? [id number] MIGRATION.626379 1643 Information not available 12/24/2022 Do You Have An Electrostatic Air Filter? No MIGRATION.217085 3646 Information not available 12/24/2022 Have There Been Any Changes To Your Family Or Social Situation? No MIGRATION.572942 7538 Information not available 12/24/2022 Are There Any Guns Present In Your Home? No MIGRATION.131706 7927 Information not available 12/24/2022 Do You Have A Humidifier? No MIGRATION.781845 9413 Information not available 12/24/2022 Do You Use Insect Repellent Routinely? Yes MIGRATION.587111 7258 Information not available 12/24/2022 Do You Have Moisture Problems In Your Home? No MIGRATION.372742 5840 Information not available 12/24/2022 What Was The Date Of Your Most Recent Tobacco Screening? 10/29/2022 MIGRATION.313901 2026 Information not available 12/24/2022 Have You Ever Been Counseled For Unhealthy Alcohol Use? No MIGRATION.133939 9754 Information not available 12/24/2022 What Is Your Relationship Status? MIGRATION.083893 6636 Information not available 12/24/2022 Do You Use Your Seat Belt Or Car Seat Routinely? Yes MIGRATION.903719 0904 Information not available 12/24/2022 Do You Have Smoke And Carbon Monoxide Detectors In Your Home? Yes MIGRATION.658231 5707 Information not available 12/24/2022 Are You Passively Exposed To Smoke? No MIGRATION.604240 5939 Information not available 12/24/2022 Are There Any Smokers In Your House? No MIGRATION.572218 6523 Information not available 12/24/2022 Do You Participate In Social Going? No MIGRATION.949502 0356 Information not available 12/24/2022 Do You Use Sunscreen Routinely? Yes MIGRATION.593355 3961 Information not available 12/24/2022 Has Tobacco Cessation Counseling Been Provided? No MIGRATION.543705 3096 Information not available 12/24/2022 Have You Recently Traveled Abroad? No MIGRATION.245864 3329 Information not available 12/24/2022 Are You Currently In School? No MIGRATION.409321 3115 Information not available 12/24/2022 Do You Have Any Dietary Restrictions? No MIGRATION.024147 7414 Information not available 12/24/2022 Sex: Unknown Functional Status Question Answer Note LastModified by [employer] ion Details LastModified Time Do you use any illicit or recreational drugs? No MIGRATION.934607 4963 Information not available 12/24/2022 Do you or have you ever used any other forms of tobacco or nicotine? No MIGRATION.938346 8947 Information not available 12/24/2022 What is your level of alcohol consumption? Occasional MIGRATION.971888 4957 Information not available 12/24/2022 Are you currently employed? Yes [email or web address] Information not available 03/25/2023 Have you been exposed to chemicals or toxins? 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 Moderate MIGRATION.696269 6068 Information not available 12/24/2022 Mental Status Question Answer Note LastModified by Organizat ion Details LastModified Time Do you feel stressed (tense, restless, nervous, or anxious, or unable to sleep at night)? [id number] MIGRATION.[id number] 5 Information not available 12/24/2022 Family History Relationship Description Onset Age of this Age Resolved Age Notes LastModified by Organization Details LastModified Time Father Diabetes mellitus MIGRATION.154 [id number] Not available 12/24/2022 10:42:59 Father Coronary arterioscler osis MIGRATION.806 3144469 Not available 12/24/2022 10:42:59 Father Hypertensive disorder MIGRATION.912 0946884 Not available 12/24/2022 10:42:59 Father Heart disease MIGRATION.432 5734123 Not available 12/24/2022 10:42:59 Father Pseudocyst of pancreas MIGRATION.644 1595365 Not available 12/24/2022 10:42:59 Mother Diabetes mellitus MIGRATION.048 2753029 Not available 12/24/2022 10:43:00 Mother Coronary arterioscler osis MIGRATION.914 5722030 Not available 12/24/2022 10:43:00 Mother Malignant tumor of pancreas MIGRATION.883 2212166 Not available 12/24/2022 10:43:00 Mother Cardiomyopat hy MIGRATION.735 0307183 Not available 12/24/2022 10:43:00 Paternal Grandfather Diabetes mellitus MIGRATION.011 2493439 Not available 12/24/2022 10:43:00 Brother Benign hypertension MIGRATION.918 3240853 Not available 12/24/2022 10:43:00 Brother Benign hypertension MIGRATION.575 4769630 Not available 12/24/2022 18:00:36 Medical History Condition Response CHEST XRAY N KIDNEY STONES N CARPAL TUNNEL SYNDROME N MRSA N HISTORY OF DRUG ABUSE N RADIATION / CHEMOTHERAPY N COPD N SPORTS INJURY N BLOOD DISEASES N SURGERY N MUMPS N SHINGLES N BOWEL PROBLEMS N FAILED BACK SYNDROME N STROKE/TIA N THYROID DISEASE N ULCERS N OTHER MODALITIES N CERVICALGIA N TB SKIN TEST N MYOCARDIAL INFARCTION N PARAPELGIA N OBESITY N URINARY/BLADDER/KIDNEY PROBLEMS N Increased Urination N INPATIENT PSYCH CARE N CORONARY ARTERY DISEASE (CAD) N MENIERE'S DISEASE N Do you have Advance directive? N CAROTID STENOSIS N ADDICTION CONCERNS N Impotence N ENDOMETRIOSIS N PARATHYROID DISEASE N PERIPHERAL VASCULAR DISEASE N MUSCLE,JOINT OR BONE PROBLEMS N DVT N STOMACH ULCERS N GASTROINTESTINAL BLEEDING N BLOOD CLOTS N PAST HISTORY OF VEHICULAR ACCIDENT N Difficulty Urinating N ASTHMA N USE OF NSAIDS N ARTERIAL INSUFFICIENCY N GI PROBLEMS N CHF N Low Testosterone N VISION/EYE PROBLEMS N MALE HYPOGONADISM N PERSONALITY DISORDER N ELBOW PAIN N TOURETTE'S N BLADDER/KIDNEY N ANXIETY DISORDER N CHRONIC EAR INFECTIONS N BIPOLAR DISORDER N CONDUCT DISORDER N OSTEOARTHRITIS N TUBERCULOSIS N DIVERTICULITIS N SLEEP APNEA N ALLERGIES/HAYFEVER N PROSTATE N HEART ARRHYTHMIA N INSOMNIA N PAST MEDICATION HISTORY N EYE PROBLEMS N SCHIZOAFFECTIVE N EDEMA N HYPOTHYROIDISM N CONSTIPATION N CAROTID BLOCKAGE N MOOD DISORDER N BACK / NECK PROBLEMS N MIGRAINES N BREAST PROBLEMS N POLYCYSTIC OVARIES N FIBROMYALGIA N OSTEOPOROSIS N Do you have a healthcare POA? N PERIPHERAL NEUROPATHY N APPENDICITIS N VON WILLIBRAND'S DISEASE N SEASONAL ALLERGIES N HEARTBURN / REFLUX N PLEURISY N ADD/ADHD N Bronchoscopy N AUTISM SPECTRUM DISORDER (ASD) N SLEEP DISORDER N RETINOPATHY N HEADACHES/MIGRAINES N SLEEP STUDY N VASCULAR DISEASE N HEART MURMUR N HIP PAIN N Blood Disorder N HEART DISEASE/HEART PROBLEMS N MULTIPLE SCLEROSIS N DEVELOPMENTAL OR BEHAVIORAL DISORDERS N CLAUDICATION N PULMONARY FUNCTION TEST N ANESTHESIA COMPLICATIONS N Gall Stones N ATRIAL FIBRILLATION N PULMONARY EMBOLISM N AUTOIMMUNE DISEASE N NERVE DISEASE N CYSTITIS N BLINDNESS N RHEUMATIC FEVER N BLADDER PROBLEMS N Enlarged Prostate N OTHER # 1 N POLIO N LUNG DISEASE/DISORDER N Other # 2 N ANKLE PAIN N EAR OR HEARING PROBLEMS N PAST SPINAL SURGERY N SCHIZOPHRENIA N SHOULDER PAIN N FEMALE PROBLEMS / INFECTIONS N DEPRESSION (INCLUDING POST ) N CHEST CT N KNEE PAIN N RENAL INSUFFICIENCY N BENIGN PROSTATIC HYPERPLASIA N MEASLES N HYPOTENSION N GERD/NAUSEA N EXCESSIVE PERSPIRATION N ANEURYSM N USE OF BLOOD THINNERS N SKIN PROBLEMS N EMPHYSEMA N SHORTNESS OF BREATH N GASTROINTESTINAL DISORDER N PTSD N Do you have a living will? N CATARACTS N CONCUSSION OR SPINAL TRAUMA N ERECTILE DYSFUNCTION N VARICOSITIES N NEUROPATHY N INFERTILITY N AIDS/HIV N FRACTURES N CHEMOTHERAPY / RADIATION N LIVER DISEASE N HYPERTENSION N Deficiency N Metal allergy N BLOOD TRANSFUSION N ANEMIA/BLOOD DISORDER N BRONCHITIS N GLAUCOMA N FOOT PROBLEM N HEART VALVE DISORDERS N CHICKENPOX N SOFT TISSUE INJURY N BACK INJECTIONS N INFECTIOUS DISEASE N ESRD N PAST INTERVENTIONAL PAIN MANAGEMENT HIST ORY N RHEUMATOID ARTHRITIS N HIGH CHOLESTEROL / HYPERLIPIDEMIA N HYPERTHYROIDISM N UTI N PVD N EATING DISORDER N NEUROLOGICAL PROBLEMS N CHRONIC PAIN SYNDROME N HAVE YOU BEEN HOSPITALIZED OR SEEN IN [facility] ER IN THE PAST YEAR ? N ATHEROSCLEROSIS N BURSITIS N HERNIATED DISC N DIALYSIS N ECZEMA N HISTORY WITH COMPLICATIONS WITH ANESTHES IA ? N PSYCHOSIS N ARTHRITIS N RESPIRATORY PROBLEMS N PAST HISTORY OF FALL N NO SIGNIFICANT PAST MEDICAL HISTORY N DIABETES, TYPE N BAD TEETH N PARKINSON N ENT N POST LAMINECTOMY SYNDROME N HEPATITIS / LIVER DISEASE N PULMONARY DISEASE N GOUT N ALZHEIMER'S DISEASE N PAIN N FATIGUE N Brain Problems N HERPES N DEMENTIA N SEIZURES/EPILEPSY N PACEMAKER N DIZZINESS N HEAD TRAUMA OR INJURY N KIDNEY DISEASE N SCARLET FEVER N MENTAL DISORDER/ILLNESS N NEUROPSYCHOLOGICAL N CARDIAC ARRHYTHMIA N CANCER: SPECIFY N PNEUMONIA N DEAF/HEARING IMPAIRED N Gynecological History Statement/Question Response Menses Monthly N Abnormal Pap N Date of Last Pap 03/14/2019 Hysterectomy? Y Date of Last Pap Smear 03/14/2019 Most Recent Mammogram 04/14/2019 Sexually Active? Y Obstetrics History GPAL:G 3 P 0 0 0 3 Type Value Living 3 Total 3 Immunizations Vaccine Type Date Status Note Provider Nam e and Address Organization Details Recorded Time influenza, unspecified formulation 5 completed Not Available [facility] 12/24/2022 10:52:16 Influenza, split virus, quadrivalent, preservative 2 completed Not Available [facility] 12/24/2022 10:52:16 COVID-19, mRNA, LNP-S, PF, 30 mcg/0.3 mL dose 1 completed Not Available [facility] 12/24/2022 10:52:17 Past Encounters Encounter ID Performer Location Encounter Start Date Encounter Closed Date Diagnosis/Indication Diagnosis SNOMED-CT Code Diagnosis ICD10 Code Diagnosis Note [id number] MARY Suarez [facility] [place] [address] [address] 10/04/2021 00:00:00 10/24/2021 15:30:49 [id number] MARY Suarez [facility] [place] [address] [address], [address] [place] [address] 08/07/2022 00:00:00 08/13/2022 14:08:50 [id number] iMki Eastman MD [facility] [place] [address] [place] [address] 10/29/2022 00:00:00 10/29/2022 11:45:24 [id number] Miki Eastman MD [facility] [place] [address] [place] [address] 11/14/2022 00:00:00 11/14/2022 16:55:32 [id number] Miki Eastman MD [facility] [place] [address] [place] [address] 12/26/2022 10:09:41 12/26/2022 10:28:33 [id number] Miki Eastman MD [facility] [place] [address] [place] [address] 01/09/2023 10:23:08 01/09/2023 10:39:20 [id number] MARY Suarez [facility] [place] [address] [place] [address] 03/26/2023 09:56:29 03/26/2023 10:25:35 Abnormal weight 32553256 R63.4 sample month of wegovy 0.25mg weekly dosing. [id number] MARY Suarez [facility] [place] [address] [place] [address] 08/11/2023 10:20:59 08/11/2023 11:11:52 Adult health examination 308676939 Z00.01 well exam completed Cholesterol screening 27 1614467 Z13.220 fasting lipids due Diabetes m ellitus screening 751652737 Z13.1 screening diabetes due. Long-term drug therapy 672451298 Z79.899 all routine labs including cmp, cbc, tfs and b12, folate Gastroesop hageal reflux disease without esophagitis 779970432 K21.9 stable on PPI therapy and famotidine 20mg daily. Cervical radiculopathy 28341946 M54.12 check baseline cspine xray Body mass index 25-29 - overweight 918591842 Z68.29 Rx increased to wegovy 2.4mg weekly dosing Health Concerns Section Related Observation LastModified by Organization Detai ls LastModified Time None Recorded Concern Status LastModified by Organization Details LastModified Time None Recorded Advance Directives Directive Y: Payers Encounter Date Sequence Insurance Name Policy Number Policy [place] Covered Member ID Barahona Member ID Guarantor Name 12/26/2022 1 [facility] [id number] [facility] Nataliya Arteaga [id number] [facility] 01/09/2023 1 [facility] [id number] Sissy A Arteaga [id number] [facility] 03/26/2023 1 [facility] [id number] [facility] Nataliya Burgesss [id number] [facility] 08/11/2023 1 [facility] [id number] [facility] Nataliya Burgesss [id number] [facility] Notes Date Note Type Note Provider Name and Address Organization Details Recorded Time 03/26/2023 text/html pt is here to discuss weight loss options MARY Suarez [address], [place], [address], [employer] 04/18/2023 20:12:51 08/11/2023 text/html Anxiety/Depressi on Reported bypatient.Severity :denies suicidal ideations; able to maintain relationships; does not interfere with activities of daily living Context:no major life stressors Associated Symptoms:denies homicidal ideations; no significant weight gain; no significant weight loss; no visual/auditory hallucinations; no delusions; no shortness of breathNotes:xanax prnReflux/GERDRepo rted bypatient.Severity :improving Context:non-smoker ; no drug/alcohol abuse; no drug alcohol withdrawal; not related to food/drink Alleviating Factors:medication Associated Symptoms:no frequent coughing; no feeling of fullness/mass in throat; no hoarseness; no food getting stuck; no belching/burping; no nausea; no vomiting; not vomiting blood; no regurgitation; no shortness of breath; no chest pain; no heartburn; no difficulty swallowing; no pain when swallowing; no bad taste; no decreased appetite; no weight loss; no black/tarry stools; no fatigue; no throat painNotes:pantopra zole daily wellness MARY Suarez [address], [place], [address], [employer] 08/23/2023 20:32:07 OBGyn Episode No OBEpisode recorded.
--- OUTSIDE RECORDS SUMMARY | 2025-03-29 07:36 | XMS_ITS | Data Portability ---
Author Organization [facility] Cheng Address [address] [place] [place] [address] Care Team Providers Care Corporate Webmaster Name Role Phone VERO MAYO Primary Care Provider Assessment No assessment recorded. Plan of Treatment Reminders Order Date Submit Date Provider Last Modified By Organization Details Last Modified Time Details Appointments ANY 15 2024 08:45A M MARY Suarez Not available Not available Not available Lab HbA1c (hemoglo bin A1c), blood 2024 025 [email or web address] [facility], [address], [place], [address], 03/23/2025 10:11:04 TSH + free T4, serum 2024 025 [email or web address] [facility], [address], [place], [address], 03/23/2025 10:11:03 CBC w/ auto diff 2024 025 [email or web address] [facility], [address], [place], [address], 03/23/2025 10:11:04 CMP, serum or plasma 2024 025 [email or web address] [facility], [address], [place], [address], 03/23/2025 10:11:04 lipid panel, serum 2024 025 [email or web address] [facility], [address], [place], [address], 03/23/2025 10:11:04 HbA1c (hemoglo bin A1c), blood 2023 024 [email or web address] [facility], [address], [place], [address], 10/06/2024 11:38:22 TSH + free T4, serum 2023 024 [facility], [address], [place], [address], 09/28/2024 09:24:03 CBC w/ auto diff 2023 024 [facility], [address], [place], [address], 09/28/2024 09:24:03 CMP, serum or plasma 2023 024 [email or web address] [facility], [address], [place], [address], 10/06/2024 11:38:21 lipid panel, serum 2023 024 [facility], [address], [place], [address], 09/28/2024 09:24:03 TSH + free T4, serum 2023 024 [facility], [address], [place], [address], 04/18/2024 09:45:00 lipid panel, serum 2023 024 [facility], [address], [place], [address], 04/18/2024 09:45:00 CBC w/ auto diff [address] [facility], [address], [place], [address], 04/18/2024 09:45:00 CMP, serum or plasma [address] [facility], [address], [place], [address], 04/18/2024 09:45:00 vitamin B12 + folate, serum or blood [address] [facility], [address], [place], [address], 04/12/2024 15:15:49 lipase, serum or plasma [address] [facility], [address], [place], [address], 04/18/2024 09:45:00 amylase, serum or plasma [address] [facility], [address], [place], [address], 04/18/2024 09:45:00 HbA1c (hemoglo bin A1c), blood [address] [facility], [address], [place], [address], 04/12/2024 15:15:49 Referral None recorded . Procedures None recorded . Surgeries None recorded . Imaging US, abdomen 2024 025 [facility], [address], [place], [address], 03/23/2025 11:51:51 US, abdomen 2023 024 [facility], [address], [address], [place], [address], 03/24/2024 14:16:21 Medication Orders Maxalt 10 mg tablet 2023 024 [id number], [address] [place], [address], 06/15/2024 09:40:44 acetamin ophen 300 mg-codei ne 30 mg tablet 2023 024 [facility], [address] [place], [address], 09/15/2024 09:49:31 predniso ne 20 mg tablet 2023 024 [facility], [address] [place], [address], 06/15/2024 09:12:05 amoxicil abena 875 mg-potas sium clavulan ate 125 mg tablet 2023 024 [facility], [address] [place] [address], [address], 06/15/2024 09:12:08 alprazol am 0.5 mg tablet 2023 024 [facility], [address] [place] [address], [address], 03/17/2024 10:31:28 ondanset myesha 4 mg disinteg rating tablet 2023 024 [facility], [address] [place], [address], 03/17/2024 10:31:24 Wegovy 1.7 mg/0.75 mL subcutan eous pen injector 2023 024 nidia [facility], [address] [place], [address], 03/17/2024 14:11:09 famotidi ne 20 mg tablet 2023 024 [email or web address] [id number], [address] [place], [address], 03/23/2025 09:42:24 Patient TargetsNo targets recorded. Patient Instructions Encounter Date Encounter Id Patient Instructions Last Modified By Organization Details Last Modified Time 03/23/2025 [id number] A healthy lifestyle: care instructions [email or web address] Not available 03/23/2025 10:10:48 Reason for Referral None Reported. Results Created Date Observation Date Name Description Value Unit Range Abnormal Flag Note LastModifiedBy Organization Detail LastModifiedTime 03/24/20 24 03/24/2024 US, abdom en No observ ation record ed. [facility] [address], [place], [address], 03/28/2024 17:23:17 Result Notes None recorded. Problems Name Problem SNOMED Code Status Onset Date Resolution Date Notes Provider Name and Address Organization Details Recorded Time Cholesterol screening Active 2023 MARY Suarez Attn: Steve berrios,[address] [facility], [place], [address], [facility] - [facility] 4 10:33:21 Family history of malignant neoplasm of pancreas 366592402 Active 2023 MARY Suarez Attn: Steve berrios,[address] [facility], [place], [address], [place] - [facility] 4 00:18:25 Body mass index 25-29 - overweight 432909060 Active 2023 MARY Suarez Attn: Steve berrios,[address] [facility], [place], [address], [place] [facility] 4 00:19:04 Anxiety 61057907 Active 2023 MARY Suarez Attn: Steve g,[address] [facility], [place], [address], [place] - [facility] 4 00:19:53 Gastroesophage al reflux disease without esophagitis 681010299 Active 2023 MARY Suarez Attn: Mirianjarad berrios,[address] [place], [place], [address] [place] [address] 2, [place] - [facility] 4 00:19:54 Dietary management surveillance Active 2023 MARY Suarez Attn: Steve yash,[address] [place], [place], [address] [place] [address] 2, [facility] - [facility] 4 00:19:56 Nausea and vomiting 10072019 Active 2023 MARY Suarez Attn: Steve yash,[address] [place], [place], [address] [place] [address] 2, [facility] - [facility] 4 00:20:23 Prediabetes 889637401 Active 2023 MARY Suarez Attn: Steve yash,[address] [place], [place], [address] [place] [address] 2, [facility] - [facility] 4 17:35:31 Hyperlipidemia 74913065 Active 2023 MARY Suarez Attn: Steve yash,[address] [place], [place], [address] [place] [address] 2, [facility] - [facility] 4 17:35:32 Overweight 530489878 Active 2024 MARY Suarez Attn: Steve berrios,[address] [place], [place], [address] [place] [address] 2, [facility] - [facility] 5 10:15:34 Long-term drug therapy Active 2024 MARY Suarez Attn: Steve berrios,[address] [place], [place], [address] [place] [address] 2, [facility] 5 10:15:40 Problem Notes None recorded. Procedures Surgical History Date Name Laterality Status Provider Name and Address Organization Details Recorded Time section completed Lupe Barrera [place] - [facility] 03/17/2024 10:11:27 Dilation and Curettage completed SLYVIE Wei - [facility] 03/17/2024 10:11:32 hysterectomy completed SYLVIE Wei - [facility] 03/17/2024 10:11:39 Imaging Results None recorded. Procedure Notes None recorded. Medical Equipment None Reported. Allergies No known drug allergies Medications Name Sig Start Date Stop Date Status Note LastModified by Organization Details LastModified Time azithromy lebron 250 mg tablet TAKE 2 TABLETS BY MOUTH TODAY, THEN TAKE 1 TABLET DAILY FOR 4 DAYS DIRECTED 03/17 completed Not Available Not Available Not Available prednison e 20 mg tablet TAKE 2 TABLETS BY MOUTH EVERY DAY FOR 5 DAYS 06/15 completed Not Available Not Available Not Available rizatript an 10 mg tablet TAKE 1 TAB BY MOUTH AT ONSET OF TENSION MIGRAINE AND MAY REPEAT 2ND DOSE IN 1 HOUR IF NEEDED. MAX OF 20MG/24 HOURS. 2023 active Not Available Not Available Not Avai lable acetamino phen 300 mg-codein e 30 mg tablet TAKE 1 TABLET EVERY 6 HOURS BY ORAL ROUTE, FOR TENSION HEADACHE BREAKTHR OUGH. 09/15 completed Not Available Not Available Not Available alprazola m 0.5 mg tablet TAKE 1 TABLET TWICE A DAY BY ORAL ROUTE NEEDED. active Not Available Not Available No t Available famotidin e 20 mg tablet Take 1 tablet twice a day by oral route. 03/23 completed Not Available Not Available Not Available ondansetr on 4 mg disintegr ating tablet PLACE & DISSOLVE 1 TABLET ON THE TONGUE EVERY 6 HOURS NEEDED active Not Available Not Available No t Available amoxicill in 875 mg-potass ium clavulana te 125 mg tablet TAKE 1 TABLET BY MOUTH EVERY 12 HOURS FOR 3 DAYS 06/15 completed Not Available Not Available Not Available famotidin e active otc Not Available Not Available Not Available Latisse 0.03 % eyelash drops APPLY DAILY TO LASH LINE 03/17 completed Not Available Not Available Not Available Saxenda 3 mg/0.5 mL (18 mg/3 mL) subcutane ous pen injector PLEASE SEE ATTACHED FOR DETAILED DIRECTIO NS 03/17 completed Not Available Not Available Not Available BD Ultra-Fin e Micro Pen Needle 32 gauge x 1/4 USE DIRECTED ONE DAILY 03/17 completed Not Available Not Available Not Available Wegovy 2.4 mg/0.75 mL subcutane ous pen injector INJECT 2.4 MG EVERY WEEK BY SUBCUTAN EOUS ROUTE DIRECTED . 03/17 completed Not Available Not Available Not Available Wegovy 1.7 mg/0.75 mL subcutane ous pen injector active lvm for pt to rtc we have not historic al records Not Available Not Available Not Available Vitals Date Recorded Oxygen saturation Oxygen saturation in Arterial blood by Pulse oximetry Provider Name and Address Organization Details Last Updated DateTime 03/17/2024 97 % 97 % MARY Suarez Attn: [place], [place], [address], [facility] 03/17/2024 10:25:17 Date Recorded Body weight Body mass index (BMI) Body height Heart rate Systolic blood pressure Diastolic blood pressure Provider Name and Address Organization Details Last Updated DateTime 4 85158.8 8 g 25.5 kg/m2 167.64 cm 85 /min 118 mm[Hg] 80 mm[Hg] Lupe Barrera MA [facility] 4 10:09:13 Date Recorded Systolic blood pressure Diastolic blood pressure Systolic blood pressure Diastolic blood pressure Provider Name and Address Organization Details Last Updated DateTime 03/23/2025 130 mm[Hg] 80 mm[Hg] 122 mm[Hg] 80 mm[Hg] MARY Suarez Attn: Accounting ,[address] [place], [address] , [facility] 5 10:13:28 Date Recorded Body height Body mass index (BMI) Body weight Heart rate Oxygen saturation Oxygen saturation in Arterial blood by Pulse oximetry Respiratory rate Systolic blood pressure Diastolic blood pressure Provider Name and Address Organization Details Last Updated DateTime 5 167.64 cm 26.6 kg/m2 44024.7 4 g 89 /min 96 % 96 % 20 /min 108 mm[Hg] 82 mm[Hg] Prema Mayberry MA [facility] 5 09:46:10 Date Recorded Body height Body mass index (BMI) Body weight Heart rate Oxygen saturation Oxygen saturation in Arterial blood by Pulse oximetry Systolic blood pressure Diastolic blood pressure Provider Name and Address Organization Details Last Updated DateTime 4 167.64 cm 25.8 kg/m2 54252.7 g 72 /min 99 % 99 % 114 mm[Hg] 72 mm[Hg] Elvia Montemayor MA [facility] 4 12:21:55 Date Recorded Body height Body mass index (BMI) Body weight Respiratory rate Oxygen saturation Oxygen saturation in Arterial blood by Pulse oximetry Heart rate Systolic blood pressure Diastolic blood pressure Provider Name and Address Organization Details Last Updated DateTime 4 167.64 cm 26.1 kg/m2 81694.9 6 g 20 /min 97 % 97 % 72 /min 122 mm[Hg] 82 mm[Hg] Prema Mayberry MA [facility] 4 09:15:03 Date Recorded Systolic blood pressure Diastolic blood pressure Provider Name and Address Organization Details Last Updated DateTime 09/15/2024 120 mm[Hg] 80 mm[Hg] MARY Suarez Attn: Accounting,[address] [place], [address], [facility] 09/15/2024 17:14:57 Date Recorded Body height Body mass index (BMI) Body weight Respiratory rate Oxygen saturation Oxygen saturation in Arterial blood by Pulse oximetry Heart rate Systolic blood pressure Diastolic blood pressure Provider Name and Address Organization Details Last Updated DateTime 4 167.64 cm 26 kg/m2 41459.3 7 g 20 /min 97 % 97 % 78 /min 126 mm[Hg] 80 mm[Hg] Prema Mayberry MA [facility] 4 09:52:33 Social History Question Answer Notes LastModified by Organizat ion Details LastModified Time Tobacco Smoking Status Never Smoker Lupe Barrera MA null, [facility] 03/17/2024 10:07:14 Do You Have An Advance Directive? No Information n ot available 04/11/2024 Are You Blind Or Do You Have Difficulty Seeing? No Information n ot available 03/17/2024 What Is Your Level Of Caffeine Consumption? Occasional Information not available 04/11/2024 In The 14 Days Before Symptom Onset, Have You Had Close Contact With A Laboratory-confirm ed COVID-19 While That Case Was Ill? No Information n ot available 04/11/2024 In The 14 Days Before Symptom Onset, Have You Had Close Contact With A Person Who Is Under Investigation For COVID-19 While That Person Was Ill? No Information not available 04/11/2024 Have You Been To An Area Known To Be High Risk For COVID-19? No Information not available 04/11/2024 Are You Deaf Or Do You Have Serious Difficulty Hearing? No Information not available 03/17/2024 What Type Of Diet Are You Following? REGULAR Information n ot available 04/11/2024 What Is The Highest Grade Or Level Of School You Have Completed Or The Highest Degree You Have Received? [id number] Information not available 04/11/2024 Are There Any Guns Present In Your Home? No Information not available 04/11/2024 What Was The Date Of Your Most Recent Tobacco Screening? 03/23/2025 [email or web address] Information not available 03/23/2025 What Is Your Relationship Status? Information not available 03/17/2024 Do You Use Your Seat Belt Or Car Seat Routinely? Yes Information not available 03/17/2024 Do You Have Smoke And Carbon Monoxide Detectors In Your Home? Yes Information not available 04/11/2024 Do You Use Sunscreen Routinely? Yes Information not available 04/11/2024 Has Tobacco Cessation Counseling Been Provided? No Information not available 04/11/2024 Sex: Female Functional Status Question Answer Note LastModified by Organizat ion Details LastModified Time Do you use any illicit or recreational drugs? No Information not available 04/11/2024 Do you or have you ever used any other forms of tobacco or nicotine? No Information not available 04/11/2024 What is your level of alcohol consumption? Occasional Information not available 03/17/2024 Are you currently employed? Yes Information not available 04/11/2024 Are you able to care for yourself? 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 None Information not available 04/11/2024 Mental Status Question Answer Note LastModified by Organization D etails LastModified Time Do you feel stressed (tense, restless, nervous, or anxious, or unable to sleep at night)? [id number] Information not available 03/17/2024 Family History Relationship Description Onset Age of this Age Resolved Age Notes LastModified by Organization Details LastModified Time Father Diabetes mellitus [email or web address] Not available 2023 10:11:49 Father Heart disease [email or web address] Not available 2023 10:11:53 Father Hypertensive disorder [email or web address] Not available 2023 10:11:58 Father Hypercholest erolemia [email or web address] Not available 2023 10:12:01 Father Malignant tumor of pancreas [email or web address] Not available 2023 10:12:11 Medical History Condition Response Coronary Artery Disease N Other N Atrial Fibrillation N High Blood Pressure N Kidney or Bladder Problems N Thyroid Problems N GI Problems N Depression N COPD N Blood Clots N Skin Problems N Anemia N Heart Attack ([place]) N Anxiety Disorder N Diabetes N Muscle, Joint, or Bone Problems N Seizures/Epilepsy N Acid Reflux (GERD) N Cancer N Stroke N Asthma N Allergies N High Cholesterol N Hepatitis N Liver Disease N Headaches N Heart Failure N Osteoporosis N Gynecological History Statement/Question Response Menses Monthly N Current Control Method None Obstetrics History GPAL:G 0 P 0 0 0 0 Immunizations Vaccine Type Date Status Note Provider Nam e and Address Organization Details Recorded Time COVID-19, mRNA, LNP-S, PF, 30 mcg/0.3 mL dose 1 completed Prema Mayberry [place], [place] - [facility] 09/14/2024 11:36:21 Influenza, split virus, trivalent, preservative 5 completed Prema Mayberry [place], [place] [facility] 09/14/2024 11:36:21 Influenza, split virus, quadrivalent, PF 2 completed SYLVIE Shultz, [place] - [facility] 09/14/2024 11:36:21 Influenza, split virus, quadrivalent, PF 1 completed Prema Mayberry MA [facility], [place] - [facility] 09/14/2024 11:36:21 Past Encounters Encounter ID Performer Location Encounter Start Date Encounter Closed Date Diagnosis/Indication Diagnosis SNOMED-CT Code Diagnosis ICD10 Code Diagnosis Note [id number] Ranjan Conteh MD [facility] [place] [address] [place] [address] 03/17/2024 09:49:23 03/17/2024 10:40:38 Nausea and vomiting 79871303 R11.2 refill on zofran 4mg ODT as directed Anxiety 15018110 F41.9 refill on alprazolam sent out. Gastroesop hageal reflux disease without esophagitis 045597894 K21.9 add famotidine 20mg daily to regimen for reflux symptoms. Dietary sylvie romero surveillance 117752933 Z71.3 noted significan t diet changes since starting wegovy. Body mass index 25-29 - overweight 919039433 Z68.25 boost to wegovy 1.7mg weekly therapy. . excellent results over 50 pounds . Adult heal th examination 141499453 Z00.01 well exam completed. labs ordered. Cholesterol screening 27 3345483 Z13.220 fasting lipid panel due Diabetes m ellitus screening 700401488 Z13.1 a1c screening due Long-term drug therapy 029183506 Z79.899 cmp, cbc and b12, folate labs are due Thyroid di sorder screening 718612110 Z13.29 routine thyroid panel due Family his tory of malignant neoplasm of pancreas 540769504 Z80.0 screening lipase and amylase ordered and pt would like u/s abdomen screening. [id number] Ranjan Conteh MD [facility] [place] [address] [place] [address] 04/11/2024 12:09:26 04/11/2024 12:46:37 Otitis media 40902887 H66.91 start augmentin 875mg bid x 7 days. Dysfunctio n of right eustachian tube 4790674191 410286 H69.91 start prednisone 40mg daily x 5 days. [id number] Ranjan Conteh MD [facility] [place] [address] [place] [address] 06/15/2024 08:55:32 06/15/2024 12:36:06 Tension-type headache 515157456 G44.209 Start Maxalt 10 mg p.r.n. migraine headache may repeat 1 dose for maximum of 20 mg in 24 hours. Also we will let her have a trial of Tylenol 3. For severe breakthrou gh tension headaches. [id number] Ranjan Conteh MD [facility] [place] [address] [place] [address] 09/15/2024 09:43:54 09/15/2024 10:52:33 Anxiety 04541221 F41.9 stable on p.r.n. alprazolam Gastroesop hageal reflux disease without esophagitis 758849288 K21.9 stable on famotidine 20mg daily to regimen for reflux symptoms. Dietary ma nagement surveillance 804471791 Z71.3 noted significan t diet changes since starting wegovy. Body mass index 25-29 - overweight 263388539 Z68.25 BMI is 26 Long-term drug therapy 821854220 Z79.899 cmp, cbc due Thyroid di sorder screening 048231578 Z13.29 routine thyroid panel due Family his tory of malignant neoplasm of pancreas 804978448 Z80.0 labs earlier in the year including lipase amylase and abdominal ultrasound were normal Hyperlipidemia 23425553 E78.5 LDL was 132 on summer labs. We will repeat fasting lipid panel to monitor for improvemen t Prediabetes 515073119 R7 3.03 5.8% A1c on summer labs we will repeat again this month on an A1c to monitor for improvemen t Left sided abdominal pain 143089141 R10.9 this was noted incidental ly on physical exam today in the office. Mild left-sided abdominal tenderness with no rebound or guarding. She does not want to have any diagnostic evaluation yet as she thinks so my just be some gas or stool. [id number] Ranjan Conteh MD [facility] [place] [address] [place] [address] 03/23/2025 09:36:09 03/23/2025 11:51:51 Body mass index 25-29 - overweight 677788375 Z68.25 BMI is 26.6 Overweight 937110677 E66 .3 noted significan t diet changes since starting wegovy. Gastroesop hageal reflux disease without esophagitis 798497293 K21.9 stable on famotidine 20mg daily to regimen for reflux symptoms. Anxiety 60930628 F41.9 stable on p.r.n. alprazolam Hyperlipidemia 28507130 E78.5 LDL was 132 on summer labs. We will repeat fasting lipid panel to monitor for improvemen t Prediabetes 352191970 R7 3.03 5.8% A1c on summer labs we will repeat again this month on an A1c to monitor for improvemen t Dietary ma nagement surveillance 719897399 Z71.3 noted significan t diet changes since starting wegovy. Long-term drug therapy 520426482 Z79.899 cmp, cbc due Thyroid di sorder screening 144418404 Z13.29 routine thyroid panel due Family his tory of malignant neoplasm of pancreas 634040546 Z80.0 labs earlier in the year including lipase amylase and abdominal ultrasound were normal Adult [facility] examination 174662475 Z00.00 well exam completed. labs ordered. Health Concerns Section Related Observation LastModified by Organization Detai ls LastModified Time None Recorded Concern Status LastModified by Organization Details LastModified Time None Recorded Advance Directives Directive N: Payers Encounter Date Sequence Insurance Name Policy Number Policy [place] Covered Member ID [place] Member ID Guarantor Name 03/17/2024 1 [facility] [id number] [employer] [id number] [employer] 04/11/2024 1 [facility] [id number] [employer] [id number] [facility] 06/15/2024 1 [facility] [id number] [employer] [id number] [facility] 09/15/2024 1 [facility] [id number] [employer] [id number] [facility] 03/23/2025 1 [facility] [id number] [employer] [id number] [employer] Notes Date Note Type Note Provider Name and Address Organization Details Recorded Time 03/17/2024 text/html Anxiety/Depressi onRepo rted bypatient.Notes:pt is very stable on alprazolam 0.5mg bid PRN.NauseaReported bypatient.Notes:pt has nausea from wegovy use. she takes zofran PRN during that few days.Reflux/GERDReport ed bypatient.Symptomsno difficulty swallowing; no pain swallowing Quality:burning Severity:moderate Duration:present 5 or more years Onset/Timing:occasiona l Context:non-smoker; no drug/alcohol abuse; no drug alcohol withdrawal Alleviating Factors:medication Aggravating Factors:lying down;worsened by food Associated Symptoms:nausea;heartb urn PT has lost notable weight on wegovy injectable therapy. MARY Suarez Attn: Accounting,[address] [facility], [place], [address], [facility] 03/27/2024 00:20:49 04/11/2024 text/html EaracheReported bypatient.Location:[facility] Quality:aching Severity:worsening Duration:frequent Timing:worse Context:no recent swimming/water in ear Modifying Factors:hurts to lie on, or pull on ear; nothing gives relief Associated Symptoms:no discharge from the ears;nose/sinus problems;popping noise in the ears MARY Suarez Attn: Accounting,[address] [facility], [place], [address], [facility] 04/28/2024 22:01:10 06/15/2024 text/html HeadacheReported bypatient.Location:[facility]; band around head Quality:similar to previous headaches Severity:severe Duration:intermittent (1-2 per month. seems to be weather related.); 10-12 years of this. Context:not related to trauma Aggravating factors:loud noiseNotes:Pt, states that she has had some headaches off and on states pt has tried ibuprofen states that it doesn't help she really thinks it could be in relation to weather changes but not 100% sure MARY Suarez Attn: Accounting,[address] [facility], [place], [address], [facility] 06/26/2024 11:08:33 09/15/2024 text/html Anxiety/Depressi onRepo rted bypatient.Notes:pt is very stable on alprazolam 0.5mg bid PRN.NauseaReported bypatient.Notes:pt has nausea from wegovy use. she takes zofran PRN during that few days.Reflux/GERDReport ed bypatient.Symptomsno difficulty swallowing; no pain swallowing Quality:burning Severity:moderate Duration:present 5 or more years Onset/Timing:occasiona l Context:non-smoker; no drug/alcohol abuse; no drug alcohol withdrawal Alleviating Factors:medication Aggravating Factors:lying down;worsened by food Associated Symptoms:nausea;heartb urn PT has lost notable weight on wegovy injectable therapy. MARY Suarez Attn: Accounting,[address] [place], [address], [facility] 09/15/2024 17:37:05 03/23/2025 text/html Anxiety/Depressi onRepo rted bypatient.Notes:pt is very stable on alprazolam 0.5mg bid PRN.NauseaReported bypatient.Notes:pt has nausea from wegovy use. she takes zofran PRN during that few days.Reflux/GERDReport ed bypatient.Symptomsno difficulty swallowing; no pain swallowing Quality:burning Severity:moderate Duration:present 5 or more years Onset/Timing:occasiona l Context:non-smoker; no drug/alcohol abuse; no drug alcohol withdrawal Alleviating Factors:medication Aggravating Factors:lying down;worsened by food Associated Symptoms:nausea;heartb urn PT has lost notable weight on wegovy injectable therapy. MARY Suarez Attn: Accounting,[address] [place], [address], [facility] 03/23/2025 10:15:58 OBGyn Episode No OBEpisode recorded.
--- OUTSIDE RECORDS SUMMARY | 2025-03-29 07:36 | XMS_ITS | CONTINUITY OF CARE DOCUMENT ---
Author Name brittany heiketaco Address Unknown Organization [facility] Address [address] [facility] [address] [place] [address] Phone [phone] Care Team Providers Care Lye Bath Operator Name Role Phone Kenny SIEGEL, Dottie Unavailable [phone] MARIA ESTHER HERNANDEZ VERO Unavailable MENOSSI PA, VERO Unavailable [phone] PROBLEMS Condition Status Date Provider Notes Dizziness active Juliann Zaman VITAL SIGNS Date Observation Value Provider blood pressure, diastolic 100 mm[Hg] Me lewis Darryl blood pressure, systolic 140 mm[Hg] Kathy Andrews SOCIAL HISTORY Date Observation Value Provider smoking status Never smoker Mayda hull FUNCTIONAL STATUS Date Observation Value Provider periodic limb movement index absent (0) Mayda Andrews INSURANCE PROVIDERS Payer name Policy type / Coverage type [place] red republican ID [employer] [facility] Other [id number] HISTORY OF PROCEDURES Procedure Date Procedure Name Provider Procedure Notes S tatus Stress EKG Dottie Cox MD completed
--- OUTSIDE RECORDS SUMMARY | 2025-03-29 07:36 | XMS_ITS | Referral Summary ---
Author Organization [facility] Address [address] [place] [address] Ben[place] [address] Care Team Providers Care Emergency Department Rn Name Role Phone No, Physician Primary Care Provider [phone] Allergies Active Allergy Reactions Criticality Noted Date Comments Metronidazole Hives Medium Hydrocodone-Acetaminophen Nausea & Vomiting Low Iodinated Contrast Media Anaphylaxis High Reaction: ANAPHYLAXIS, Meperidine Hives,Itching Medium 10/21/2010 Oxycodone-Acetaminophen Nausea & Vomiting Low 10/21 Medications ALPRAZolam (XANAX) 0.25 mg tablet every 8 hours Active ergocalciferol (VITAMIN D) 50,000 unit capsule Vitamin D2 1,250 mcg (50,000 unit) capsule TAKE 1 CAPSULE(S) EVERY WEEK BY ORAL ROUTE DIRECTED. Active pantoprazole DR (PROTONIX) 40 mg EC tablet Take 40 mg by mouth daily 09/08/2022 Active Wegovy 1.7 mg/0.75 mL auto-injector Inject 0.75 mL (1.7 mg total) under the skin every 7 days 03/17/2024 Active famotidine (PEPCID) 20 mg tablet Take 1 tablet (20 mg total) by mouth nightly as needed Active Active Problems Problem Noted Date Diagnosed Date Blood glucose abnormal 08/23/2019 Dizziness 08/23/2019 Elevated blood-pressure read ing without diagnosis of hypertension 08/23/2019 Gastroesophageal reflux disease with hiatal emily ia 08/23/2019 Vitamin D deficiency 08/23/2019 Generalized headache 08/23/2019 Abdominal hematoma 10/28/2018 Overview (10/28/2018): Added automatically from request for surgery [id number] Excessive fat 07/15/2018 Overview (07/15/2018): Added automatically from request for surgery [id number] Resolved Problems Problem Noted Date Diagnosed Date Resolved Date Hypertension 09/17/2010 07/15/2018 Overview (01/28/2017): HYPERTENSION NOS Immunizations Immunization Administration Dates Next Due Influenza, Trivalent, IM (MDV) 10/21/2015 Influenza, Trivalent, Preservative Free, Intramu scular 09/27/2014 Influenza, Unspecified 10/22/2015 Tdap 06/25/2015 Social History Tobacco Use Types Packs/Day Years Used Date Smoking Tobacco: Never Smokeless Tobacco: Never Alcohol Use Standard Drinks/Week Comments Yes 1 (1 standard drink = 0.6 oz pur e alcohol) Comments Unknown Sex and Gender Information Value Date Recorded Sex Assigned at Not on file 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 Gender Identity Not on file Sexual Orientation Not on file Last Filed Vital Signs Vital Sign Reading Time Taken Comments Blood Pressure 131/89 04/04/2024 2:09 PM CDT Pulse 84 04/04/2024 2:09 PM CDT Temperature 36.7 C (98 F) 04/04/2024 2:09 PM CDT Respiratory Rate 18 04/04/2024 2:09 PM CDT Oxygen Saturation 98% 04/04/2024 2:09 PM CDT Inhaled Oxygen Concentration - - Weight 75.8 kg (167 lb 1.6 oz) 04/04/2024 2:09 P M CDT Height 167.6 cm (5' 5.98) 04/04/2024 2:09 PM CD T Body Mass Index 26.98 04/04/2024 2:09 PM CDT Plan of Treatment Not on file Insurance [employer] Advance Directives For more information, please contact: [phone] * Full Code (Latest Code Status on File) Date Activated Date Inactivated Comments 10/21/2018 1:53 PM 10/22/2018 10:52 PM Care Teams Emergency Department Rn Relationship Specialty Start Date End Date No, Physician PCP - General 01/23/21
--- OUTSIDE RECORDS SUMMARY | 2025-03-29 07:36 | XMS_ITS | Encounter Summary ---
Author Organization [facility] Address [address] [place] [address] Care Team Providers Care Label Folder Name Role Phone Brina Hayward Primary Care Pr ovider No, Physician Primary Care Provider [phone] Encounter Details Date Type Department Care Team (Late st Contact Info) Description 10/24/2018 Documentation [facility] Case Management [address] [place] [address] Jennifer Wong RN Social History Tobacco Use Types Packs/Day Years Used Date Smoking Tobacco: Never Smokeless Tobacco: Never Alcohol Use Standard Drinks/Week Comments Yes 1 (1 standard drink = 0.6 oz pur e alcohol) Comments Unknown Sex and Gender Information Value Date Recorded Sex Assigned at Not on file 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 Gender Identity Not on file Sexual Orientation Not on file documented as of this encounter Plan of Treatment Not on file documented as of this encounter Visit Diagnoses Not on filedocumented in this encounter Additional Health Concerns Infection Onset Date Last Indicated Resolved Time COVID: Suspected 04/04/2024 04/04/2024 04/04/2024 2:44 PM CDT documented as of this encounter Care Teams Label Folder Relationship Specialty Start Date End Date Brina Hayward PA PCP - General Physician Synthetic Cloth Binding Cutter 07/02/18 01/22/21 No, Physician PCP - General 01/23/21 documented as of this encounter
--- OUTSIDE RECORDS SUMMARY | 2025-03-29 07:36 | XMS_ITS | Clinical Summary ---
Author Organization [facility] Address [address] [place] [address] Phone Care Team Providers Care Artist'S Manager Name Role Phone Den Yun MD Primary Care Provider [phone] Allergies Active Allergy Reactions Criticality Noted Date Comments Hydrocodone-Acetaminophen Nausea and Vomiting Low 1 12/22/2009 Iodinated Contrast Media Shortness of Breath/Wheezing High 10/21/2010 Meperidine Hives,Itching High 10/21/2010 Oxycodone-Acetaminophen Nausea and Vomiting Low Medications ranitidine (ZANTAC) 150 mg Oral tablet Take 150 mg by mouth. PRN Active SUMAtriptan (IMITREX) 50 mg Oral tablet Take 50 mg by mouth. PRN Active verapamil ER 24 hour (VERELAN) 120 mg Oral capsuleIndicatio ns:Headache(784. 0) Take 1 Cap by mouth daily. 30 Cap 2 10/21/2010 Active indomethacin (INDOCIN) 25 mg Oral capsuleIndicatio ns:Headache(784. 0) Take 1 Cap by mouth 3 times daily. 30 Cap 0 10/21/2010 Active Active Problems No known active problems Family History Medical History Relation Name Comments Hypertension Brother Diabetes Father Heart Disease Father Hypertension Father Kidney Disease Father Peripheral Neuropathy Father Heart Disease Maternal Grandfather Diabetes Paternal Grandmother Heart Disease Paternal Grandmother Hypertension Paternal Grandmother Kidney Disease Paternal Grandmother Peripheral Neuropathy Paternal Grandmother Stroke Paternal Grandmother Relation Name Status Comments Brother Alive Father Alive Maternal Grandfather Mother Alive Paternal Grandmother Social History Tobacco Use Types Packs/Day Years Used Date Smoking Tobacco: Never Alcohol Use Standard Drinks/Week Comments Yes 0 (1 standard drink = 0.6 oz pur e alcohol) Comments Unknown Sex and Gender Information Value Date Recorded Sex Assigned at Not on file 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 [place] Gender Identity Not on file Sexual Orientation Not on file Last Filed Vital Signs Vital Sign Reading Time Taken Comments Blood Pressure 124/60 11/12/2010 9:26 AM PILE DRIVER OPERATOR [place] Pulse 60 11/12/2010 9:26 AM PILE DRIVER OPERATOR [place]ED Temperature - - Respiratory Rate - - Oxygen Saturation - - Inhaled Oxygen Concentration - - Weight 97.5 kg (215 lb) 11/12/2010 9:26 AM PILE DRIVER OPERATOR [place]GE M[place]ED Height 167.6 cm (5' 6) 10/21/2010 1:51 PM PILE DRIVER OPERATOR [place]GE [place]ED Body Mass Index 34.7 10/21/2010 1:51 PM PILE DRIVER OPERATOR [place]GE [place]ED Plan of Treatment Health Maintenance Due Date Last Done Comments DTAP/TDAP/TD VACCINES (1 - Tdap) 1988 HEPATITIS B VACCINES (1 of 3 - 19+ 3-dose series) 11/27 HPV/Cotest (21-29) 1990 CERVICAL CANCER SCREENING 1999 HPV/Cotest (30-65) 1999 PAP SMEAR 1999 BREAST CANCER SCREENING 2009 COLORECTAL SCREENING 2014 Colorectal Cancer Screening 2014 FIT-DNA Q 3 years 2014 FIT/FOBT Q 1 year 2014 Flex Sig/CT Colonography Q 5 years 2014 ZOSTER VACCINE (1 of 2) 2019 INFLUENZA VACCINE (#1) 2024 Care Teams Artist'S Manager Relationship Specialty Start Date End Date Den Yun MD [address] [place] [address] PCP - General Internal Medicine 10/21/10
--- OUTSIDE RECORDS SUMMARY | 2025-03-29 07:37 | XMS_ITS | Clinical Summary ---
Author Organization [facility] Address [address] [place] [address] [place] [address] Care Team Providers Care Machine Assistant Name Role Phone No, Physician Primary Care Provider [phone] Allergies Active Allergy Reactions Criticality Noted Date [...] (10/28/2018): Added automatically from request for surgery [id number] Excessive fat 07/15/2018 Overview (07/15/2018): Added automatically from request for surgery [id number] Resolved Problems Problem Noted Date Diagnosed Date Resolved Date Hypertension 09/17/2010 07/15/2018 Overview (01/28/2017): HYPERTENSION NOS Immunizations Immunization Administration Dates Next Due Influenza, Trivalent, IM (MDV) 10/21/2015 Influenza, Trivalent, Preservative Free, Intramu scular 09/27/2014 Influenza, Unspecified 10/22/2015 Tdap 06/25/2015 Surgical History Surgery Date Site/Laterality Comments SECTION 1990, 1995, 2000 OOPHORECTOMY 10/26/2011 - 10/25/2012 GANGLION CYST EXCISION Bilateral ABDOMINOPLASTY 10/21/2018 and liposuction HYSTERECTOMY 10/26/2014 - 11/25/2014 for AUB Medical History Medical History Date Comments Hiatal hernia Hematoma RLQ- following a bdominoplasty PONV (postoperative nausea and vomiting) with abdominoplasty Claustrophobia Family History Medical History Relation Name Comments Coronary artery disease Father Edwin nary artery disease; Diabetes type II Father Diabetes -T ype II; Heart attack Father 1st AR in his 4 0s Heart disease Father Hyperlipidemia Father Hyperlipidemi a; Hypertension Father Hypertension; Pancreatitis Father Pancreatitis; Diabetes type II Maternal Grandmother Judi escamilla -Type II; Cancer Mother pancreatic canc er Other Mother Alive and well; Relation Name Status Comments Father Maternal Grandmother Mother Social History Tobacco Use Types Packs/Day Years Used Date Smoking Tobacco: Never Smokeless Tobacco: Never Alcohol Use Standard Drinks/Week Comments Yes 1 (1 standard drink = 0.6 oz pur e alcohol) Comments Unknown Sex and Gender Information Value Date Recorded Sex Assigned at Not on file 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 Gender Identity Not on file Sexual Orientation Not on file Obstetrics History Last Filed Vital Signs Vital Sign Reading [...] 04/04/2024 2:09 PM CDT Plan of Treatment Health Maintenance Due Date Last Done Comments Breast Cancer Screening-Mammogram 1969 Colon Cancer Screening-Colonoscopy 1969 Depression Screening 1969 Hepatitis C Screening 1969 Hepatitis B Screening 1987 Regular Well Visit/Exam 18-64 1987 Zoster Vaccine (1 of 2) 2019 DTaP/Tdap/Td Vaccine (2 - Td or Tdap) 06/25/2025 06/25/2015 Influenza Vaccine (Season Ended) 2025 08/25/2022, 10/22/2015, 10/21/2015, Additional history exists Pneumococcal vaccine <65 Aged Out No longer eligible based on patient's age to complete this topic Insurance [employer] [employer] [employer] Address: [facility] [address] [place] [address] [employer]O Address: [address] [address] [place] [address] [employer]O Address: [id number] [place] [address] Advance Directives For more information, please contact: [phone] * Full Code (Latest Code Status on File) Date Activated Date Inactivated Comments 10/21/2018 1:53 PM 10/22/2018 10:52 PM Care Teams Machine Assistant Relationship Specialty Start Date End Date No, Physician PCP - General 01/23/21
== END 2025-03-29 07:34 | disposition home or self-care (01) ==
LOC: ANHIMG 07:34
PROVIDERS: PCP Physician Assistant; Visit Provider Obstetrics & Gynecology
DX: Z12.31 Encounter for screening mammogram for malignant neoplasm of breast (principal)
CPT/HCPCS: 77063; 77067